=== PATIENT | male | born 1955 | race Caucasian/White ===

== ENCOUNTER → 2016-07-07 | Outpatient (CLI) | payer OTHER ==
[~2016-07-07] MED LIST: CETI10CA PO; ERGO500017 PO; GABA100C8 PO; GABA300C10 PO; HYDR10TA11 PO; HYDROCORTISONE; IBUP200C PO; LISI-167 PO; SERT100T5 PO; SIMV40TA3 PO; TESTOSTERON IM; THYROXINE PO; TRAM50TA2 PO
[2016-07-07 08:31] LABS: ASPARTATE AMINO TRANSFERASE 27 U/L (15-37); BLOOD UREA NITROGEN 16 mg/dL (7-18)
[2016-07-08 08:06] LABS: TESTOSTERONE TOTAL 938 ng/dL (348-1197)
== END | disposition home or self-care (01) ==
LOC: LAB 08:00
PROVIDERS: ATTEND Family Medicine
DX: E78.2 Mixed hyperlipidemia (principal); E03.9 Hypothyroidism, unspecified; E23.0 Hypopituitarism; E27.1 Primary adrenocortical insufficiency; E29.1 Testicular hypofunction
CPT/HCPCS: 36415; 80053; 80061; 81003; 82533; 84146; 84403; 84443; 85025

== ENCOUNTER → 2016-09-21 | Outpatient (CLI) | payer OTHER ==
[~2016-09-21] MED LIST changes: +ACET1TAB64 PO; +ASPI-496 PO; +GABA-826 PO; -GABA100C8 PO; +L-THYROXINE PO; +LORA10TA3 PO; +LOSA50TA6 PO; +METH500T7 PO; +METO25TA35 PO; +OMEP-110 PO; +TEST200V IM
[2016-09-21 16:59] LABS: ASPARTATE AMINO TRANSFERASE 33 U/L (15-37); BLOOD UREA NITROGEN 15 mg/dL (7-18)
== END | disposition home or self-care (01) ==
LOC: STAR 15:30
PROVIDERS: ATTEND Surgery
DX: Z01.818 Encounter for other preprocedural examination (principal); E78.00 Pure hypercholesterolemia, unspecified; I10 Essential (primary) hypertension; E66.9 Obesity, unspecified; G47.30 Sleep apnea, unspecified; K42.9 Umbilical hernia without obstruction or gangrene; Z86.718 Personal history of other venous thrombosis and embolism
CPT/HCPCS: 36415; 71020; 80053; 85025; 93005

== ENCOUNTER 2016-09-25 06:20 | Day surgery (SDC) | payer OTHER ==
[2016-09-21 16:15] VITALS: BP 131/89
[~2016-09-25] VITALS: Ht 182.9 cm; Wt 128.0 kg
[~2016-09-25 06:20] MED LIST changes: +BUPIVACAINE/PF-EPI 0.5% 1:200K ONE
[2016-09-25] MEDS ORDERED: BUPIVACAINE/PF 0.5% ONE ×2 (06:21→07:14)
[2016-09-25] MEDS ORDERED: LIDOCAINE/PF 1%, 30ML ONE ×2 (06:23→07:14)
[2016-09-25] MEDS ORDERED: SODIUM BICARBONATE 4.2%, 5ML ONE ×2 (06:23→07:15)
[2016-09-25] MEDS ORDERED: LACTATED RINGERS 1,000 ML IV SCH ×2 (06:41→07:10)
[2016-09-25 06:50] VITALS: BP 131/89
[2016-09-25] MEDS ORDERED: MIDAZOLAM 1 MG/ML, 2ML ONE (06:58)
[2016-09-25] MEDS ORDERED: KETAMINE 10 MG/ML, 20ML ONE ×2 (06:58→07:24)
[2016-09-25] MEDS ORDERED: FENTANYL PF 250 MCG/5ML ONE (06:58)
[2016-09-25] MEDS ORDERED: LIDOCAINE 1%, 2ML SQ PRN (07:00)
[2016-09-25] MEDS ORDERED: GABAPENTIN 300 MG CAPSULE PO ONE (07:00)
[2016-09-25] MEDS ORDERED: CELE400C PO (07:15)
[2016-09-25] MEDS ORDERED: CEFAZOLIN 1,000 MG ONE (07:24)
[2016-09-25] MEDS ORDERED: ONDANSETRON 2MG/ML, 2ML ONE (07:24)
[2016-09-25] MEDS ORDERED: DEXAMETHASONE 4 MG/ML, 1ML ONE (07:24)
[2016-09-25] MEDS ORDERED: HYDROmorphone 2 MG/ML, 1ML IVPush PRN (07:30)
[2016-09-25] MEDS ORDERED: OXYcodone/APAP 5/325MG TABLET PO PRN (07:30)
[2016-09-25] MEDS ORDERED: ONDANSETRON 2MG/ML, 2ML IVPush PRN ×2 (07:30→08:00)
[2016-09-25] MEDS ORDERED: FENTANYL PF 100 MCG/2ML IV PRN (08:00)
[2016-09-25] MEDS ORDERED: ALBUTEROL/IPRATROPIUM 2.5MG/0.5MG, 3 ML NPPB PRN (08:00)
[2016-09-25] MEDS ORDERED: LABETALOL 5MG/ML, 20ML IV PRN (08:00)
[2016-09-25] MEDS ORDERED: OXYcodone 5 MG/5 ML ORAL.SOL UDC PO PRN (08:00)
[2016-09-25] MEDS ORDERED: hydrALAzine 20 MG/ML, 1ML IV PRN (08:00)
[2016-09-25] MEDS ORDERED: MEPERIDINE/PF 25MG/0.5ML IVPush PRN (08:00)
[2016-09-25] MEDS ORDERED: HYDROmorphone 1 MG/ML, 1ML IV PRN (08:00)
[2016-09-25] MEDS ORDERED: ACETAMINOPHEN 325 MG TABLET PO PRN (08:00)
[2016-09-25] MEDS ORDERED: MIDAZOLAM 1 MG/ML, 2ML IV PRN (08:00)
[2016-09-25] MEDS ORDERED: PROMETHAZINE 25 MG/ML, 1ML IV PRN (08:00)
[2016-09-25] MEDS ORDERED: ACETAMINOPHEN 650 MG/20.3 ML UDC ONE (08:34)
[2016-09-25] MEDS ORDERED: OXYcodone 5 MG/5 ML ORAL.SOL UDC ONE (08:35)
[2016-09-25] MEDS ORDERED: TESTOSTERONE CYPIONATE 200 MG/ML IM SCH (09:00)
[2016-09-25] MEDS ORDERED: METHOCARBAMOL 500 MG TABLET PO SCH (09:00)
[2016-09-25] MEDS ORDERED: ERGOCALCIFEROL 50,000 UNIT CAPSULE PO SCH (09:00)
[2016-09-25] MEDS ORDERED: LEVOTHYROXINE 112 MCG PO SCH (09:00)
[2016-09-25] MEDS ORDERED: OMEPRAZOLE 20 MG CAPSULE.DR PO SCH (09:00)
[2016-09-25] MEDS ORDERED: METOPROLOL TARTRATE 25 MG TABLET PO SCH (09:00)
[2016-09-25] MEDS ORDERED: LORATADINE 10 MG TABLET PO SCH (09:00)
[2016-09-25] MEDS ORDERED: SERTRALINE 100MG TABLET PO SCH (09:00)
[2016-09-25] MEDS ORDERED: HYDROCORTISONE 10 MG TABLET PO SCH (09:00)
[2016-09-25] MEDS ORDERED: LOSARTAN 50MG TABLET PO SCH (09:00)
[2016-09-25] MEDS ORDERED: SIMVASTATIN 40 MG TABLET PO SCH (21:00)
[2016-09-25] MEDS ORDERED: GABAPENTIN 100 MG CAPSULE PO SCH (21:00)
== END 2016-09-25 12:25 ==
LOC: OUT 06:20
PROVIDERS: ATTEND Surgery
DX: K42.9 Umbilical hernia without obstruction or gangrene (principal); E78.00 Pure hypercholesterolemia, unspecified; I10 Essential (primary) hypertension; Z98.890 Other specified postprocedural states; Z88.1 Allergy status to other antibiotic agents; Z88.0 Allergy status to penicillin; Z83.3 Family history of diabetes mellitus; Z80.3 Family history of malignant neoplasm of breast; Z82.49 Family history of ischemic heart disease and other diseases of the circulatory system; G47.30 Sleep apnea, unspecified
CPT/HCPCS: 49585; C1781; J0690; J1100; J2250; J2405; J3010; J3490

== ENCOUNTER → 2017-01-03 | Outpatient (CLI) | payer OTHER ==
[~2017-01-03] MED LIST changes: -BUPIVACAINE/PF-EPI 0.5% 1:200K ONE; +CELE400C PO; -IBUP200C PO; +IBUP200C5 PO; +REGADENOSON 0.4 MG/5 ML SYRINGE ONE
[2017-01-03 09:05] LABS: HEMATOCRIT 44.7 % (39.2-51.8)
[2017-01-03 09:16] LABS: BLOOD UREA NITROGEN 20 mg/dL (7-18)
[2017-01-03 09:17] LABS: ASPARTATE AMINO TRANSFERASE 29 U/L (15-37)
[2017-01-04 08:07] LABS: TESTOSTERONE TOTAL 838 ng/dL (264-916)
== END | disposition home or self-care (01) ==
LOC: CFH 08:01
PROVIDERS: ATTEND Internal Medicine Cardiovascular Disease
DX: Z12.5 Encounter for screening for malignant neoplasm of prostate (principal); R00.2 Palpitations; E27.1 Primary adrenocortical insufficiency; E83.51 Hypocalcemia; I10 Essential (primary) hypertension; E03.9 Hypothyroidism, unspecified; E23.7 Disorder of pituitary gland, unspecified; E78.89 Other lipoprotein metabolism disorders
CPT/HCPCS: 36415; 78452; 80053; 80061; 81003; 82306; 82330; 82533; 84146; 84153; 84403; 84443; 85025; 93017; A9502; J2785

== ENCOUNTER → 2017-08-15 | Outpatient (CLI) | payer OTHER ==
[~2017-08-15] MED LIST changes: -REGADENOSON 0.4 MG/5 ML SYRINGE ONE
[2017-08-15 11:43] LABS: BASOPHILS # (AUTO) 0.03 x10^3/uL (0-0.1); BASOPHILS % (AUTO) 0 % (0-1); EOSINOPHILS # (AUTO) 0.17 x10^3/uL (0-0.4); EOSINOPHILS % (AUTO) 2 % (1-7); LYMPHOCYTES # (AUTO) 1.88 x10^3/uL (1-3.4); LYMPHOCYTES % (AUTO) 20 % (22-44); MD NO; MEAN CORPUSCULAR HEMOGLOBIN 27.6 pg (27.5-34.5); MEAN CORPUSCULAR HGB CONC 32.4 g/dL (33.2-36.2); MEAN CORPUSCULAR VOLUME 85.2 fL (81-97); MEAN PLATELET VOLUME 8.9 fL (7.4-10.4); MONOCYTES # (AUTO) 0.93 x10^3/uL (0.2-0.8); MONOCYTES % (AUTO) 10 % (2-9); NEUTROPHILS # (AUTO) 6.43 x10^3/uL (1.8-6.8); NEUTROPHILS % (AUTO) 68 % (42-75); PLATELET COUNT 226 x10^3/uL (130-400); RED BLOOD COUNT 5.82 x10^6/uL (4.38-5.82); RED CELL DISTRIBUTION WIDTH 16.6 % (9.4-14.8)
[2017-08-15 11:44] LABS: MICROSCOPIC NOT IND
[2017-08-15 11:54] LABS: CHLORIDE 106 mmol/L (98-107)
[2017-08-15 12:10] LABS: ALANINE AMINOTRANSFERASE 40 U/L (12-78); ALBUMIN 3.8 g/dL (3.4-5.0); ALKALINE PHOSPHATASE 74 U/L (45-117); ANION GAP 7 mmol/L (5-15); BILIRUBIN,TOTAL 0.8 mg/dL (0.2-1.0); CALCIUM 8.5 mg/dL (8.5-10.1); CHOL/HDL RATIO 4.3; CHOLESTEROL, TOTAL 171 mg/dL (140-239); CREATININE 1.19 mg/dL (0.7-1.3); HDL CHOL % 23 % (26-37); HDL CHOLESTEROL (DIRECT) 40 mg/dL (40-60); LDL CHOLESTEROL,CALCULATED 94 mg/dL (54-169); LDL/HDL RATIO 2.4 (0.5-3.0); THYROID STIMULATING HORMONE 0.922 mIU/L (0.358-3.740); TRIGLYCERIDES 183 mg/dL (50-200); VLDL CHOLESTEROL 37 mg/dL (0-25)
== END ==
LOC: LAB 11:09
PROVIDERS: ATTEND Family Medicine
DX: E03.9 Hypothyroidism, unspecified (principal); E23.0 Hypopituitarism; E27.1 Primary adrenocortical insufficiency; E29.1 Testicular hypofunction; E55.9 Vitamin D deficiency, unspecified
CPT/HCPCS: 36415; 80053; 80061; 81003; 82306; 82533; 84146; 84153; 84403; 84443; 85025; G0103

== ENCOUNTER → 2017-11-12 | Outpatient (CLI) | payer OTHER ==
[~2017-11-12] MED LIST changes: +IBUP-1623 PO; -IBUP200C5 PO
[2017-11-12 10:13] LABS: HCT (SEDRATE) 48.3 % (39.2-51.8)
[2017-11-12 10:25] LABS: C-REACTIVE PROTEIN, QUANT 0.95 mg/dL (0.02-0.49)
[2017-11-12 10:32] LABS: HEMOGLOBIN A1C 5.9 % (4.2-6.3)
[2017-11-12 10:34] LABS: THYROID STIMULATING HORMONE 0.911 mIU/L (0.358-3.740)
[2017-11-13 17:46] LABS: ANA SCREEN POSITIVE (Negative); ANA TITER 1:40; ANTI-NUCLEAR ANTIBODY PATTERN HOMOGENOUS
== END | disposition home or self-care (01) ==
LOC: LAB 09:51
PROVIDERS: ATTEND Family Medicine
DX: G62.9 Polyneuropathy, unspecified (principal); E55.9 Vitamin D deficiency, unspecified; R73.9 Hyperglycemia, unspecified; R51 Headache
CPT/HCPCS: 36415; 82306; 83036; 84443; 85651; 86038; 86039; 86140

== ENCOUNTER → 2017-12-14 | Outpatient (CLI) | payer OTHER ==
[~2017-12-14] MED LIST changes: -LOSA50TA6 PO; +LOSA50TA7 PO
== END | disposition home or self-care (01) ==
LOC: CFH 07:17
PROVIDERS: ATTEND Family Medicine
DX: M50.30 Other cervical disc degeneration, unspecified cervical region (principal); M48.02 Spinal stenosis, cervical region; M51.36 Other intervertebral disc degeneration, lumbar region; M48.07 Spinal stenosis, lumbosacral region; M47.897 Other spondylosis, lumbosacral region; H70.91 Unspecified mastoiditis, right ear; M54.16 Radiculopathy, lumbar region
CPT/HCPCS: 70551; 72141; 72148

== ENCOUNTER → 2017-12-20 | Outpatient (CLI) | payer OTHER | END | disposition home or self-care (01) | LOC: LAB 13:09 | PROVIDERS: ATTEND Family Medicine | DX: R76.0 Raised antibody titer (principal); Z86.718 Personal history of other venous thrombosis and embolism; Z85.858 Personal history of malignant neoplasm of other endocrine glands | CPT/HCPCS: 36415; 83516; 86038; 86160; 86225; 86235; 86255; 86256; 86376; 86431 ==

== ENCOUNTER 2018-10-29 09:16 | Outpatient (CLI) | payer OTHER | END 2018-10-29 23:59 | disposition home or self-care (01) | LOC: LAB 09:16 | PROVIDERS: ATTEND Internal Medicine Cardiovascular Disease | DX: E03.9 Hypothyroidism, unspecified (principal); E27.1 Primary adrenocortical insufficiency; E55.9 Vitamin D deficiency, unspecified; E78.2 Mixed hyperlipidemia; R53.83 Other fatigue; R97.20 Elevated prostate specific antigen [PSA] | CPT/HCPCS: 36415; 80053; 80061; 81003; 82306; 82533; 84146; 84153; 84403; 84436; 84443; 84481; 85025 ==

== ENCOUNTER → 2019-02-14 | Outpatient (CLI) | payer OTHER ==
[~2019-02-14] MED LIST changes: +HYDR-3059 PO; -HYDR10TA11 PO; +LORA-247 PO; -LORA10TA3 PO; +LOSA50TA14 PO; -LOSA50TA7 PO; +SERT100T32 PO; -SERT100T5 PO
[2019-02-14 08:54] LABS: CHOL/HDL RATIO 5.2; LDL/HDL RATIO 3.1 (0.5-3.0)
== END | disposition home or self-care (01) ==
LOC: LAB 08:02
PROVIDERS: ATTEND Internal Medicine Cardiovascular Disease
DX: D75.1 Secondary polycythemia (principal); E03.9 Hypothyroidism, unspecified; E78.2 Mixed hyperlipidemia; G47.30 Sleep apnea, unspecified; G62.9 Polyneuropathy, unspecified; I10 Essential (primary) hypertension; M25.571 Pain in right ankle and joints of right foot; R00.2 Palpitations; R60.9 Edema, unspecified
CPT/HCPCS: 36415; 80061

== ENCOUNTER → 2019-04-23 | Outpatient (CLI) | payer OTHER ==
[~2019-04-23] MED LIST changes: +SIMV40TA20 PO; -SIMV40TA3 PO
[2019-04-23 10:33] LABS: BASOPHILS # (AUTO) 0.06 x10^3/uL (0-0.1); BASOPHILS % (AUTO) 1 % (0-1); EOSINOPHILS # (AUTO) 0.12 x10^3/uL (0-0.4); EOSINOPHILS % (AUTO) 2 % (1-7); LYMPHOCYTES # (AUTO) 2.19 x10^3/uL (1-3.4); LYMPHOCYTES % (AUTO) 27 % (22-44); MD NO; MEAN CORPUSCULAR HEMOGLOBIN 30.2 pg (27.5-34.5); MEAN CORPUSCULAR HGB CONC 32.4 g/dL (33.2-36.2); MEAN CORPUSCULAR VOLUME 93.1 fL (81-97); MEAN PLATELET VOLUME 8.3 fL (7.4-10.4); MONOCYTES # (AUTO) 0.73 x10^3/uL (0.2-0.8); MONOCYTES % (AUTO) 9 % (2-9); NEUTROPHILS # (AUTO) 5.01 x10^3/uL (1.8-6.8); NEUTROPHILS % (AUTO) 62 % (42-75); PLATELET COUNT 248 x10^3/uL (130-400); RED BLOOD COUNT 5.52 x10^6/uL (4.38-5.82); RED CELL DISTRIBUTION WIDTH 15.7 % (9.4-14.8)
[2019-04-23 10:37] LABS: HCT (SEDRATE) 51.4 % (39.2-51.8)
[2019-04-23 11:09] LABS: ALANINE AMINOTRANSFERASE 40 U/L (12-78); ALBUMIN 3.8 g/dL (3.4-5.0); ANION GAP 7 mmol/L (5-15); C-REACTIVE PROTEIN, QUANT 0.57 mg/dL (0.02-0.49); CALCIUM 8.8 mg/dL (8.5-10.1); CHLORIDE 109 mmol/L (98-107); CREATININE 1.58 mg/dL (0.7-1.3)
[2019-04-23 11:12] LABS: ALKALINE PHOSPHATASE 63 U/L (45-117); BILIRUBIN,TOTAL 0.4 mg/dL (0.2-1.0); TOTAL PROTEIN 7.5 g/dL (6.4-8.2)
[2019-04-23 11:20] LABS: CHOL/HDL RATIO 4.7; LDL/HDL RATIO 2.8 (0.5-3.0)
== END | disposition home or self-care (01) ==
LOC: LAB 10:11
PROVIDERS: ATTEND Nurse Practitioner
DX: I10 Essential (primary) hypertension (principal); E03.9 Hypothyroidism, unspecified; E78.2 Mixed hyperlipidemia; E23.0 Hypopituitarism; E55.9 Vitamin D deficiency, unspecified; D64.9 Anemia, unspecified; E27.1 Primary adrenocortical insufficiency; D75.1 Secondary polycythemia; G47.30 Sleep apnea, unspecified; G62.9 Polyneuropathy, unspecified; M25.571 Pain in right ankle and joints of right foot; R00.2 Palpitations; R60.9 Edema, unspecified; R10.9 Unspecified abdominal pain; K92.1 Melena
CPT/HCPCS: 36415; 80053; 80061; 82306; 84146; 84443; 85025; 85651; 86140

== ENCOUNTER 2020-01-06 17:25 | Emergency (ER) | payer OTHER ==
[~2020-01-06] VITALS: Ht 182.9 cm; Wt 125.0 kg
[~2020-01-06 17:25] MED LIST changes: -HYDR-3059 PO; +HYDR-3590 PO
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
[2020-01-06] MEDS ORDERED: DIPH,PERTUSS(ACELL),TET VAC/PF 0.5 ML IM-VACC ONE ×3 (17:43→18:00)
[2020-01-06] MEDS ORDERED: L.E.T SOLUTION TP ONE ×2 (18:00→18:56)
[2020-01-06] MEDS ORDERED: LIDOCAINE-MPF 1%, 5ML INFIL ONE (18:00)
--- NOTE | 2020-01-06 18:09 | NUR ---
PT TO CT.
--- NOTE | 2020-01-06 18:50 | NUR ---
PT HAS C/O RT LOW BACK PAIN. PER BUZZ BULLARD, NO IMAGING INDICATED AT THIS TIME.
[2020-01-06] MEDS ORDERED: LIDOCAINE-MPF 1%, 5ML ONE (18:55)
--- NOTE | 2020-01-06 18:55 | NUR ---
REPORT GIVEN TO ANTHONY BORJA. PT RESTING ON GURNEY W/ CALL LIGHT IN REACH AND FAMILY AT BEDSIDE, RESP EVEN AND UNLABORED, NADN. AWAITING SUTURES.
[2020-01-06] MEDS ORDERED: KETOROLAC 30 MG/1 ML ONE (19:38)
[2020-01-06] MEDS ORDERED: NEOSPORIN OINT. PKT 1 PACKET ONE (19:48)
[2020-01-06] MEDS ORDERED: KETOROLAC 30 MG/1 ML IM ONE (20:00)
[2020-01-06 20:27] VITALS: BP 148/89
== END 2020-01-06 20:52 | disposition home or self-care (01) ==
LOC: ED 20:18
DX: S01.21XA Laceration without foreign body of nose, initial encounter (principal); S39.012A Strain of muscle, fascia and tendon of lower back, initial encounter; S63.511A Sprain of carpal joint of right wrist, initial encounter; S60.222A Contusion of left hand, initial encounter; S60.413A Abrasion of left middle finger, initial encounter; I10 Essential (primary) hypertension; E78.5 Hyperlipidemia, unspecified; W01.198A Fall on same level from slipping, tripping and stumbling with subsequent striking against other object, initial encounter; Y93.89 Activity, other specified; Y92.009 Unspecified place in unspecified non-institutional (private) residence as the place of occurrence of the external cause; Y99.8 Other external cause status
CPT/HCPCS: 12011; 70450; 70486; 72125; 73110; 73130; 90471; 90715; 96372; 99285; J1885

== ENCOUNTER → 2020-02-09 | Outpatient (CLI) | payer OTHER ==
[2020-02-09 08:24] LABS: ALBUMIN 3.6 g/dL (3.4-5.0); ANION GAP 6 mmol/L (5-15); CALCIUM 8.9 mg/dL (8.5-10.1); CHLORIDE 106 mmol/L (98-107)
[2020-02-09 08:25] LABS: BASOPHILS % (AUTO) 1 % (0-1); EOSINOPHILS % (AUTO) 2 % (1-7); LYMPHOCYTES % (AUTO) 26 % (22-44); MEAN CORPUSCULAR HEMOGLOBIN 30.2 pg (27.5-34.5); MEAN CORPUSCULAR HGB CONC 33.9 g/dL (33.2-36.2); MEAN PLATELET VOLUME 8.2 fL (7.4-10.4); MONOCYTES % (AUTO) 10 % (2-9); NEUTROPHILS % (AUTO) 61 % (42-75); PLATELET COUNT 259 x10^3/uL (130-400); RED BLOOD COUNT 5.33 x10^6/uL (4.38-5.82); RED CELL DISTRIBUTION WIDTH 15.5 % (9.4-14.8)
[2020-02-09 08:29] LABS: MD NO
[2020-02-09 08:33] LABS: ALANINE AMINOTRANSFERASE 34 U/L (12-78); ALKALINE PHOSPHATASE 92 U/L (45-117); BILIRUBIN,TOTAL 0.4 mg/dL (0.2-1.0); CHOL/HDL RATIO 4.1; CHOLESTEROL, TOTAL 191 mg/dL (140-239); CREATININE 1.04 mg/dL (0.7-1.3); FREE T4 (FREE THYROXINE) 0.78 ng/dL (0.76-1.46); HDL CHOL % 25 % (26-37); HDL CHOLESTEROL (DIRECT) 47 mg/dL (40-60); LDL CHOLESTEROL,CALCULATED 93 mg/dL (54-169); TOTAL PROTEIN 7.3 g/dL (6.4-8.2); TRIGLYCERIDES 254 mg/dL (50-200); VLDL CHOLESTEROL 51 mg/dL (0-25)
== END | disposition home or self-care (01) ==
LOC: LAB 07:55
PROVIDERS: ATTEND Nurse Practitioner
DX: I10 Essential (primary) hypertension (principal); E78.2 Mixed hyperlipidemia; E03.9 Hypothyroidism, unspecified; E23.0 Hypopituitarism
CPT/HCPCS: 36415; 80053; 80061; 84146; 84439; 84443; 85025

== ENCOUNTER 2020-03-28 11:51 | Inpatient (IN) | payer OTHER ==
[~2020-03-28] VITALS: Ht 182.9 cm; Wt 94.2 kg
[~2020-03-28 11:51] MED LIST changes: +METH-639 PO; -METH500T7 PO
--- NOTE | 2020-03-28 12:20 | NUR ---
INITIAL PT CONTACT. PT PRESENTS TO THE ED C/O WORSENING SOB AND CHEST PAIN. "COVID POSITIVE FOUND OUT 03/26/2020. WORSENING SYMPTOMS SINCE THEN". INITIAL SX STARTED 03/21/2020. NO HOME O2. RA O2 SAT 80%, PT PLACED ON OXY MASK ON 8L BY [employer] SYSTEM FREIGHT [employer]ER. PT SITTING UPRIGHT ON GURNEY, NAD. PT DENIES ANY NEEDS AT THIS TIME. CALL LIGHT AND PERSONAL BELONGINGS WITHIN REACH.
[2020-03-28] MEDS ORDERED: DEXAMETHASONE 4 MG/ML, 1ML IV ONE (12:30)
[2020-03-28] MEDS ORDERED: DEXAMETHASONE 4 MG/ML, 1ML ONE (12:32)
[2020-03-28] MEDS ORDERED: CEFTRIAXONE PMX 1GM/50ML 50 ML IVPB ONE (13:00)
[2020-03-28] MEDS ORDERED: AZITHROMYCIN 500 MG in SODIUM CHLORIDE 0.9% 250 ML IV ONE (13:00)
[2020-03-28] MEDS ORDERED: CEFTRIAXONE PMX 1GM/50ML 50 ML ONE (13:01)
--- NOTE | 2020-03-28 13:10 | NUR ---
PT SITTING UPRIGHT ON GURNEY. NAD, VSS. PT PROVIDED WARM BLANKET. PT DENIES ANY NEEDS AT THIS TIME. CALL LIGHT AND BELONGINGS WITHIN REACH.
[2020-03-28] MEDS ORDERED: KETOROLAC 30 MG/1 ML IV PRN (13:30)
[2020-03-28] MEDS ORDERED: ONDANSETRON 2MG/ML, 2ML IVPush PRN (13:30)
[2020-03-28] MEDS ORDERED: ENOXAPARIN 40 MG/0.4 ML SQ SCH (13:30)
[2020-03-28] MEDS ORDERED: ONDANSETRON ODT 4 MG PO PRN (13:30)
[2020-03-28] MEDS ORDERED: TRAZODONE 50MG TABLET PO PRN (13:30)
[2020-03-28] MEDS ORDERED: GUAIFENESIN/DM 200-20MG, 10ML UDC PO PRN (13:30)
[2020-03-28] MEDS ORDERED: MELATONIN 5 MG TABLET PO PRN (13:30)
[2020-03-28] MEDS ORDERED: ENALAPRILAT 1.25 MG/ML, 2ML IVPush PRN (13:30)
[2020-03-28 13:34] LABS: BASOPHILS % (AUTO) 1 % (0-1); EOSINOPHILS % (AUTO) 0 % (1-7); LYMPHOCYTES % (AUTO) 14 % (22-44); MEAN CORPUSCULAR HEMOGLOBIN 30.3 pg (27.5-34.5); MEAN PLATELET VOLUME 8.9 fL (7.4-10.4); MONOCYTES % (AUTO) 7 % (2-9); NEUTROPHILS % (AUTO) 78 % (42-75); PLATELET COUNT 131 x10^3/uL (130-400); RED BLOOD COUNT 5.11 x10^6/uL (4.38-5.82); RED CELL DISTRIBUTION WIDTH 17.5 % (9.4-14.8)
[2020-03-28] MEDS ORDERED: ENOXAPARIN 40 MG/0.4 ML ONE (13:35)
[2020-03-28 13:37] LABS: MD NO
[2020-03-28 13:39] LABS: ALANINE AMINOTRANSFERASE 34 U/L (12-78); ALBUMIN 3.2 g/dL (3.4-5.0); ANION GAP 5 mmol/L (5-15); CALCIUM 7.8 mg/dL (8.5-10.1); CHLORIDE 101 mmol/L (98-107); CREATININE 1.06 mg/dL (0.7-1.3)
[2020-03-28 13:41] LABS: ALKALINE PHOSPHATASE 65 U/L (45-117); BILIRUBIN,TOTAL 0.6 mg/dL (0.2-1.0); TOTAL PROTEIN 7.3 g/dL (6.4-8.2)
--- NOTE | 2020-03-28 13:59 | NUR ---
PT SITTING UPRIGHT ON GURNEY. NAD, VSS. PT PROVIDED WARM BLANKET AND BEAR PAW WARMER PER REQUEST. PT DENIES ANY NEEDS AT THIS TIME. CALL LIGHT AND BELONGINGS WITHIN REACH.
--- NOTE | 2020-03-28 14:11 | NUR ---
HOSPITALIST AT BEDSIDE
[2020-03-28] MEDS ORDERED: THIAMINE 100MG TABLET ONE (14:28)
[2020-03-28] MEDS ORDERED: THIAMINE 100MG TABLET PO ONE (14:30)
--- NOTE | 2020-03-28 14:35 | NUR ---
PT PROVIDED URINAL PER REQUEST. PT DENIES ANY ADDITIONAL NEEDS AT THIS TIME.
[2020-03-28] MEDS ORDERED: REMDESIVIR 200 MG in SODIUM CHLORIDE 0.9% 250 ML IVPB ONE (15:00)
--- NOTE | 2020-03-28 15:02 | NUR ---
BEDSIDE REPORT TO TERRY BORJA
--- NOTE | 2020-03-28 15:08 | NUR ---
Report from HUONG Shafer. Assumed care.
--- NOTE | 2020-03-28 15:33 | NUR ---
Rin retrieved from pharmacy. RN at bedside. Pt reports they are coughing more than usual and coughing up phlem
--- NOTE | 2020-03-28 15:46 | NUR ---
Remdesivier infusing. RN at bedside. Pt up to 10L oxymask, satting 90%. This RN called RT to inquire about pt.'s condition- RT reported anything above 85% is good, and that the pt. satting at 90% is ok.
--- NOTE | 2020-03-28 15:55 | NUR ---
Pt flushed- face and chest red. Diaphoretic. Coughing periodically- productive. RN at bedside. Remdesivir infusing.
--- NOTE | 2020-03-28 15:56 | NUR ---
Provided pt 7UP, water and crackers per pt. request. Order is in for regular diet.
[2020-03-28] MEDS ORDERED: ASCORBIC ACID 500 MG TABLET ONE (17:41)
[2020-03-28] MEDS: ASCORBIC ACID 500 MG TABLET PO SCH (17:44)
--- NOTE | 2020-03-28 17:57 | NUR ---
Pt's 02 sats dropped 70% when pt stood to use urinal. RN at bedside. Took about 2 minutes for pt.'s 02 sats to get back to 90% on 10L oxymask.
--- NOTE | 2020-03-28 18:42 | NUR ---
Ordered dinner tray for pt.
--- NOTE | 2020-03-28 19:02 | NUR ---
Dinner tray delivered to pt. Pt sitting up in bed eating. RN at bedside.
--- NOTE | 2020-03-28 19:20 | NUR ---
RN at bedside, provider at bedside.
--- NOTE | 2020-03-28 19:21 | NUR ---
Pt being transported upstairs, monitored.
[2020-03-28 19:37] VITALS: BP 123/85
[2020-03-28 20:10] VITALS: BP 119/86
[2020-03-28] MEDS: METOPROLOL TARTRATE 25 MG TAB PO SCH (20:12)
[2020-03-28] MEDS: GABAPENTIN 300 MG CAPSULE PO SCH (20:12)
[2020-03-28] MEDS: HYDROCORTISONE 20 MG TABLET PO SCH (20:12)
[2020-03-28] MEDS: FAMOTIDINE 20 MG TABLET PO SCH (20:13)
[2020-03-28] MEDS: SIMVASTATIN 40 MG TABLET PO SCH (22:14)
[2020-03-28] MEDS: GUAIFENESIN/COD200MG-20MG/10ML LIQUID PO PRN (22:14)
[2020-03-28] MEDS: ACETAMINOPHEN 325 MG TABLET PO PRN (23:35)
[2020-03-29] MEDS: GUAIFENESIN/COD200MG-20MG/10ML LIQUID PO PRN (03:12)
[2020-03-29 03:14] VITALS: BP 129/69
[2020-03-29 05:46] LABS: BASOPHILS % (AUTO) 0 % (0-1); EOSINOPHILS % (AUTO) 0 % (1-7); LYMPHOCYTES % (AUTO) 15 % (22-44); MEAN CORPUSCULAR HGB CONC 33.8 g/dL (33.2-36.2); MEAN PLATELET VOLUME 8.6 fL (7.4-10.4); MONOCYTES % (AUTO) 7 % (2-9); NEUTROPHILS % (AUTO) 78 % (42-75); PLATELET COUNT 152 x10^3/uL (130-400); RED BLOOD COUNT 5.48 x10^6/uL (4.38-5.82)
[2020-03-29] MEDS ORDERED: FUROSEMIDE 20 MG/2 ML IV STA (05:49)
[2020-03-29 05:54] LABS: CHLORIDE 102 mmol/L (98-107)
[2020-03-29 06:11] LABS: ALANINE AMINOTRANSFERASE 34 U/L (12-78); ALBUMIN 3.1 g/dL (3.4-5.0); ALKALINE PHOSPHATASE 70 U/L (45-117); ANION GAP 7 mmol/L (5-15); BILIRUBIN,TOTAL 0.6 mg/dL (0.2-1.0); CALCIUM 8.1 mg/dL (8.5-10.1); TOTAL PROTEIN 7.7 g/dL (6.4-8.2)
[2020-03-29 06:13] LABS: MD NO
[2020-03-29 06:21] LABS: C-REACTIVE PROTEIN, QUANT > 19.00 mg/dL (0.02-0.49)
[2020-03-29 07:03] LABS: FIO2 100 %
[2020-03-29] MEDS: METHOCARBAMOL 500 MG TABLET PO SCH (08:10)
[2020-03-29] MEDS: ZINC SULFATE 220 MG CAPSULE PO SCH (08:10)
[2020-03-29] MEDS: METOPROLOL TARTRATE 25 MG TAB PO SCH ×2 (08:10→20:35)
[2020-03-29] MEDS: LORATADINE 10 MG TABLET PO SCH (08:10)
[2020-03-29] MEDS: FAMOTIDINE 20 MG TABLET PO SCH ×2 (08:10→20:35)
[2020-03-29] MEDS: ASCORBIC ACID 500 MG TABLET PO SCH ×2 (08:10→16:48)
[2020-03-29] MEDS ORDERED: LOSARTAN 50MG TABLET PO SCH (09:00)
[2020-03-29] MEDS ORDERED: CHOLECALCIFEROL 1,000 UNIT TABLET PO SCH (09:00)
[2020-03-29] MEDS ORDERED: DEXAMETHASONE 4 MG/ML, 1ML IVPush SCH (09:00)
[2020-03-29] MEDS: HYDROCORTISONE 20 MG TABLET PO SCH ×2 (09:10→20:34)
[2020-03-29] MEDS: ENOXAPARIN 120MG/0.8ML SQ SCH ×2 (09:10→20:35)
[2020-03-29] MEDS: SERTRALINE 100MG TABLET PO SCH (09:10)
[2020-03-29] MEDS: GUAIFENESIN/COD200MG-20MG/10ML LIQUID PO SCH ×3 (11:24→20:34)
[2020-03-29] MEDS: CEFTRIAXONE PMX 1GM/50ML 50 ML IV SCH (14:26)
[2020-03-29] MEDS: REMDESIVIR 100 MG in SODIUM CHLORIDE 0.9% 250 ML IVPB SCH (15:53)
[2020-03-29 18:47] VITALS: BP 109/72
[2020-03-29 19:08] VITALS: BP 117/77
[2020-03-29 20:30] VITALS: BP 99/56
[2020-03-29] MEDS: GABAPENTIN 300 MG CAPSULE PO SCH ×2 (20:35→21:00)
[2020-03-29] MEDS: SIMVASTATIN 40 MG TABLET PO SCH (20:35)
[2020-03-30] MEDS: GUAIFENESIN/COD200MG-20MG/10ML LIQUID PO SCH ×6 (04:26→19:48)
[2020-03-30 05:06] LABS: BASOPHILS % (AUTO) 1 % (0-1); EOSINOPHILS % (AUTO) 0 % (1-7); LYMPHOCYTES % (AUTO) 15 % (22-44); MEAN CORPUSCULAR HEMOGLOBIN 30.1 pg (27.5-34.5); MEAN CORPUSCULAR HGB CONC 32.8 g/dL (33.2-36.2); MEAN PLATELET VOLUME 9.2 fL (7.4-10.4); MONOCYTES % (AUTO) 7 % (2-9); NEUTROPHILS % (AUTO) 77 % (42-75); PLATELET COUNT 138 x10^3/uL (130-400); RED CELL DISTRIBUTION WIDTH 16.9 % (9.4-14.8)
[2020-03-30 05:10] LABS: MD NO
[2020-03-30 05:11] LABS: ALBUMIN 2.8 g/dL (3.4-5.0); CHLORIDE 103 mmol/L (98-107)
[2020-03-30 05:23] LABS: ALANINE AMINOTRANSFERASE 31 U/L (12-78); ALKALINE PHOSPHATASE 61 U/L (45-117); ANION GAP 3 mmol/L (5-15); BILIRUBIN,TOTAL 0.5 mg/dL (0.2-1.0); TOTAL PROTEIN 6.9 g/dL (6.4-8.2)
[2020-03-30 06:00] VITALS: BP 134/86
[2020-03-30] MEDS ORDERED: FUROSEMIDE 40 MG/4 ML ONE (08:47)
[2020-03-30] MEDS: LORATADINE 10 MG TABLET PO SCH (08:52)
[2020-03-30] MEDS: METHOCARBAMOL 500 MG TABLET PO SCH (08:52)
[2020-03-30] MEDS: THIAMINE 100MG TABLET PO SCH (08:52)
[2020-03-30] MEDS: ASCORBIC ACID 500 MG TABLET PO SCH ×2 (08:52→16:39)
[2020-03-30] MEDS: ZINC SULFATE 220 MG CAPSULE PO SCH (08:52)
[2020-03-30] MEDS: CHOLECALCIFEROL 5,000u TAB PO SCH (08:52)
[2020-03-30] MEDS: ENOXAPARIN 120MG/0.8ML SQ SCH ×2 (08:53→21:02)
[2020-03-30] MEDS: SERTRALINE 100MG TABLET PO SCH (08:53)
[2020-03-30] MEDS: HYDROCORTISONE 100 MG INJ. IVPush SCH ×2 (08:53→16:38)
[2020-03-30] MEDS ORDERED: FUROSEMIDE 40 MG/4 ML IV ONE (09:00)
[2020-03-30 12:10] LABS: MICROSCOPIC NOT IND
[2020-03-30] MEDS ORDERED: AZITHROMYCIN 500 MG TABLET PO ONE (13:30)
[2020-03-30] MEDS: CEFTRIAXONE PMX 1GM/50ML 50 ML IV SCH (16:39)
[2020-03-30] MEDS: ACETAMINOPHEN 325 MG TABLET PO PRN (17:01)
[2020-03-30] MEDS: REMDESIVIR 100 MG in SODIUM CHLORIDE 0.9% 250 ML IVPB SCH (17:54)
[2020-03-30] MEDS: SIMVASTATIN 40 MG TABLET PO SCH (19:48)
[2020-03-31] MEDS: HYDROCORTISONE 100 MG INJ. IVPush SCH ×3 (00:27→16:31)
[2020-03-31] MEDS: GUAIFENESIN/COD200MG-20MG/10ML LIQUID PO SCH ×6 (00:27→20:39)
[2020-03-31] MEDS: ACETAMINOPHEN 325 MG TABLET PO PRN (00:33)
[2020-03-31 04:00] VITALS: BP 103/62
[2020-03-31 04:44] LABS: ALANINE AMINOTRANSFERASE 30 U/L (12-78); ALBUMIN 2.6 g/dL (3.4-5.0); ANION GAP 6 mmol/L (5-15); CALCIUM 7.8 mg/dL (8.5-10.1); CHLORIDE 105 mmol/L (98-107); CREATININE 0.93 mg/dL (0.7-1.3)
[2020-03-31 04:46] LABS: ALKALINE PHOSPHATASE 67 U/L (45-117); BILIRUBIN,TOTAL 0.5 mg/dL (0.2-1.0); TOTAL PROTEIN 6.6 g/dL (6.4-8.2)
[2020-03-31] MEDS: ENOXAPARIN 120MG/0.8ML SQ SCH ×2 (09:00→20:39)
[2020-03-31] MEDS ORDERED: FUROSEMIDE 40 MG/4 ML IV ONE (09:00)
[2020-03-31] MEDS: THIAMINE 100MG TABLET PO SCH (09:12)
[2020-03-31] MEDS: ASCORBIC ACID 500 MG TABLET PO SCH ×2 (09:12→16:31)
[2020-03-31] MEDS: ZINC SULFATE 220 MG CAPSULE PO SCH (09:12)
[2020-03-31] MEDS: METHOCARBAMOL 500 MG TABLET PO SCH (09:12)
[2020-03-31] MEDS: CHOLECALCIFEROL 5,000u TAB PO SCH (09:12)
[2020-03-31] MEDS: AZITHROMYCIN 500 MG TABLET PO SCH (09:12)
[2020-03-31] MEDS: LORATADINE 10 MG TABLET PO SCH (09:12)
[2020-03-31] MEDS: SERTRALINE 100MG TABLET PO SCH (09:12)
[2020-03-31] MEDS: CEFTRIAXONE PMX 1GM/50ML 50 ML IV SCH (14:20)
[2020-03-31] MEDS: REMDESIVIR 100 MG in SODIUM CHLORIDE 0.9% 250 ML IVPB SCH (15:32)
[2020-03-31] MEDS: SIMVASTATIN 40 MG TABLET PO SCH (20:39)
[2020-04-01] MEDS: HYDROCORTISONE 100 MG INJ. IVPush SCH ×3 (00:26→16:12)
[2020-04-01 03:22] LABS: MEAN CORPUSCULAR HEMOGLOBIN 30.3 pg (27.5-34.5); MEAN CORPUSCULAR HGB CONC 33.7 g/dL (33.2-36.2); MEAN PLATELET VOLUME 8.8 fL (7.4-10.4); PLATELET COUNT 208 x10^3/uL (130-400); RED BLOOD COUNT 4.91 x10^6/uL (4.38-5.82); RED CELL DISTRIBUTION WIDTH 16.9 % (9.4-14.8)
[2020-04-01 03:35] LABS: ALANINE AMINOTRANSFERASE 30 U/L (12-78); ALBUMIN 2.6 g/dL (3.4-5.0); ANION GAP 6 mmol/L (5-15); CALCIUM 8.1 mg/dL (8.5-10.1); CHLORIDE 102 mmol/L (98-107)
[2020-04-01 03:37] LABS: ALKALINE PHOSPHATASE 71 U/L (45-117); BILIRUBIN,TOTAL 0.6 mg/dL (0.2-1.0); TOTAL PROTEIN 6.8 g/dL (6.4-8.2)
[2020-04-01] MEDS: GUAIFENESIN/COD200MG-20MG/10ML LIQUID PO SCH ×6 (04:03→22:00)
[2020-04-01 04:06] LABS: MD YES
[2020-04-01 04:10] LABS: ANISOCYTOSIS 1+; BAND#(MANUAL) 0.28 x10^3/uL; BANDS%(MANUAL) 2 % (0-7); LYMPH#(MANUAL) 0.57 x10^3/uL (1-3.4); LYMPHS% (MANUAL) 4 % (22-44); MONOS#(MANUAL) 1.14 x10^3/uL (0.3-2.7); MONOS% (MANUAL) 8 % (2-9); REACTIVE LYMPHS # (MANUAL) 0.14 x10^3/uL (0-0); REACTIVE LYMPHS % (MANUAL) 1 % (0-0); SEG#(MANUAL) 12.07 x10^3/uL (1.8-6.8); SEGS% (MANUAL) 85 % (42-75)
[2020-04-01 04:11] LABS: POLYCHROMASIA 1+
[2020-04-01 04:13] LABS: <PLATELET ESTIMATE> ADEQUATE; <PLT MORPHOLOGY> NORMAL PLT MORPH
[2020-04-01 06:00] VITALS: BP 135/85
[2020-04-01] MEDS: SERTRALINE 100MG TABLET PO SCH (08:57)
[2020-04-01] MEDS: ZINC SULFATE 220 MG CAPSULE PO SCH (08:57)
[2020-04-01] MEDS: THIAMINE 100MG TABLET PO SCH (08:57)
[2020-04-01] MEDS: LORATADINE 10 MG TABLET PO SCH (08:57)
[2020-04-01] MEDS: CHOLECALCIFEROL 5,000u TAB PO SCH (08:58)
[2020-04-01] MEDS: METHOCARBAMOL 500 MG TABLET PO SCH (08:58)
[2020-04-01] MEDS: AZITHROMYCIN 500 MG TABLET PO SCH (08:58)
[2020-04-01] MEDS: FUROSEMIDE 40 MG/4 ML IV SCH ×2 (08:58→16:12)
[2020-04-01] MEDS: ASCORBIC ACID 500 MG TABLET PO SCH ×2 (08:58→16:12)
[2020-04-01] MEDS: ENOXAPARIN 120MG/0.8ML SQ SCH ×2 (09:00→21:00)
[2020-04-01] MEDS: REMDESIVIR 100 MG in SODIUM CHLORIDE 0.9% 250 ML IVPB SCH (14:16)
[2020-04-01] MEDS: CEFTRIAXONE PMX 1GM/50ML 50 ML IV SCH (18:00)
[2020-04-01] MEDS ORDERED: SENNA/DOCUSATE TABLET ONE (21:30)
[2020-04-01] MEDS: SENNA/DOCUSATE TABLET PO SCH (21:59)
[2020-04-01] MEDS: SIMVASTATIN 40 MG TABLET PO SCH (22:00)
[2020-04-01] MEDS: LIDODERM 5% PATCH TD SCH (22:01)
[2020-04-02] MEDS: HYDROCORTISONE 100 MG INJ. IVPush SCH ×3 (00:40→20:37)
[2020-04-02] MEDS: GUAIFENESIN/COD200MG-20MG/10ML LIQUID PO SCH ×6 (04:46→20:37)
[2020-04-02 05:23] VITALS: BP 126/75
[2020-04-02 07:48] LABS: MEAN CORPUSCULAR HEMOGLOBIN 30.3 pg (27.5-34.5); MEAN CORPUSCULAR HGB CONC 33.4 g/dL (33.2-36.2); MEAN PLATELET VOLUME 8.6 fL (7.4-10.4); PLATELET COUNT 262 x10^3/uL (130-400); RED BLOOD COUNT 4.73 x10^6/uL (4.38-5.82); RED CELL DISTRIBUTION WIDTH 16.7 % (9.4-14.8)
[2020-04-02 07:58] LABS: ALANINE AMINOTRANSFERASE 30 U/L (12-78); ALBUMIN 2.3 g/dL (3.4-5.0); ANION GAP 8 mmol/L (5-15); CALCIUM 8.3 mg/dL (8.5-10.1); CHLORIDE 102 mmol/L (98-107); CREATININE 0.91 mg/dL (0.7-1.3)
[2020-04-02 08:02] LABS: ALKALINE PHOSPHATASE 65 U/L (45-117); BILIRUBIN,TOTAL 0.7 mg/dL (0.2-1.0); TOTAL PROTEIN 6.5 g/dL (6.4-8.2)
[2020-04-02] MEDS: FUROSEMIDE 40 MG/4 ML IV SCH ×2 (08:35→17:09)
[2020-04-02] MEDS: AZITHROMYCIN 500 MG TABLET PO SCH (08:36)
[2020-04-02] MEDS: ASCORBIC ACID 500 MG TABLET PO SCH ×2 (08:36→17:09)
[2020-04-02] MEDS: LORATADINE 10 MG TABLET PO SCH (08:36)
[2020-04-02] MEDS: THIAMINE 100MG TABLET PO SCH (08:36)
[2020-04-02] MEDS: ZINC SULFATE 220 MG CAPSULE PO SCH (08:36)
[2020-04-02] MEDS: CHOLECALCIFEROL 5,000u TAB PO SCH (08:36)
[2020-04-02] MEDS: SERTRALINE 100MG TABLET PO SCH (08:36)
[2020-04-02] MEDS: METHOCARBAMOL 500 MG TABLET PO SCH (08:36)
[2020-04-02] MEDS: LIDODERM REMOVE PATCH NOTE XX SCH (08:48)
[2020-04-02] MEDS: ENOXAPARIN 120MG/0.8ML SQ SCH ×2 (09:00→20:42)
[2020-04-02 09:24] LABS: MD YES
[2020-04-02 09:27] LABS: BAND#(MANUAL) 0.95 x10^3/uL; BANDS%(MANUAL) 6 % (0-7); LYMPH#(MANUAL) 1.42 x10^3/uL (1-3.4); LYMPHS% (MANUAL) 9 % (22-44); MONOS#(MANUAL) 0.79 x10^3/uL (0.3-2.7); MONOS% (MANUAL) 5 % (2-9); REACTIVE LYMPHS # (MANUAL) 0.16 x10^3/uL (0-0); REACTIVE LYMPHS % (MANUAL) 1 % (0-0); SEG#(MANUAL) 12.48 x10^3/uL (1.8-6.8); SEGS% (MANUAL) 79 % (42-75)
[2020-04-02 09:28] LABS: <PLATELET ESTIMATE> ADEQUATE; <PLT MORPHOLOGY> NORMAL PLT MORPH
[2020-04-02 09:29] LABS: ANISOCYTOSIS 1+
[2020-04-02] MEDS: SENNA/DOCUSATE TABLET PO SCH ×2 (12:00→20:37)
[2020-04-02] MEDS: POLYETHYLENE GLYCOL 17 GM PACKET PO PRN (12:01)
[2020-04-02] MEDS ORDERED: TESTOSTERONE CYPIONATE 200 MG/ML IM ONE (12:30)
[2020-04-02] MEDS ORDERED: ALBUTEROL/IPRATROPIUM 2.5MG/0.5MG, 3 ML ONE (16:26)
[2020-04-02] MEDS: CEFTRIAXONE PMX 1GM/50ML 50 ML IV SCH (18:13)
[2020-04-02] MEDS: MAGNESIUM HYDROXIDE 8%, 30ML UDC PO PRN (18:24)
[2020-04-02] MEDS: LIDODERM 5% PATCH TD SCH (20:32)
[2020-04-02] MEDS: SIMVASTATIN 40 MG TABLET PO SCH (20:37)
[2020-04-03] MEDS: GUAIFENESIN/COD200MG-20MG/10ML LIQUID PO SCH ×8 (00:57→23:57)
[2020-04-03 04:57] VITALS: BP 118/69
[2020-04-03] MEDS: METHOCARBAMOL 500 MG TABLET PO SCH (09:26)
[2020-04-03] MEDS: LORATADINE 10 MG TABLET PO SCH (09:26)
[2020-04-03] MEDS: HYDROCORTISONE 100 MG INJ. IVPush SCH ×2 (09:26→19:37)
[2020-04-03] MEDS: SENNA/DOCUSATE TABLET PO SCH ×2 (09:26→19:37)
[2020-04-03] MEDS: SERTRALINE 100MG TABLET PO SCH (09:26)
[2020-04-03] MEDS: FUROSEMIDE 40 MG/4 ML IV SCH ×2 (09:27→17:13)
[2020-04-03] MEDS: THIAMINE 100MG TABLET PO SCH (09:30)
[2020-04-03] MEDS: CHOLECALCIFEROL 5,000u TAB PO SCH (09:30)
[2020-04-03] MEDS: ZINC SULFATE 220 MG CAPSULE PO SCH (09:30)
[2020-04-03] MEDS: ASCORBIC ACID 500 MG TABLET PO SCH ×2 (09:30→17:13)
[2020-04-03] MEDS: LIDODERM REMOVE PATCH NOTE XX SCH (09:30)
[2020-04-03] MEDS: ENOXAPARIN 120MG/0.8ML SQ SCH ×2 (09:32→19:38)
[2020-04-03] MEDS: CEFTRIAXONE PMX 1GM/50ML 50 ML IV SCH (17:13)
[2020-04-03] MEDS: SIMVASTATIN 40 MG TABLET PO SCH (19:37)
[2020-04-03] MEDS: LIDODERM 5% PATCH TD SCH ×2 (19:40→19:44)
[2020-04-04] MEDS: GUAIFENESIN/COD200MG-20MG/10ML LIQUID PO SCH ×5 (04:07→20:00)
[2020-04-04 04:26] LABS: MEAN CORPUSCULAR HEMOGLOBIN 30.3 pg (27.5-34.5); MEAN CORPUSCULAR HGB CONC 33.4 g/dL (33.2-36.2); MEAN PLATELET VOLUME 8.7 fL (7.4-10.4); PLATELET COUNT 320 x10^3/uL (130-400); RED CELL DISTRIBUTION WIDTH 16.5 % (9.4-14.8)
[2020-04-04 04:34] LABS: ANION GAP 4 mmol/L (5-15); CALCIUM 8.3 mg/dL (8.5-10.1); CHLORIDE 99 mmol/L (98-107); CREATININE 0.99 mg/dL (0.7-1.3)
[2020-04-04 05:49] LABS: MD YES
[2020-04-04 05:54] LABS: ANISOCYTOSIS 1+; BAND#(MANUAL) 2.01 x10^3/uL; BANDS%(MANUAL) 10 % (0-7); EOS% (MANUAL) 1 % (1-7); LYMPH#(MANUAL) 1.81 x10^3/uL (1-3.4); LYMPHS% (MANUAL) 9 % (22-44); MONOS#(MANUAL) 1.01 x10^3/uL (0.3-2.7); MONOS% (MANUAL) 5 % (2-9); POLYCHROMASIA 1+; REACTIVE LYMPHS % (MANUAL) 2 % (0-0); SEG#(MANUAL) 14.67 x10^3/uL (1.8-6.8); SEGS% (MANUAL) 73 % (42-75)
[2020-04-04 05:55] LABS: <PLATELET ESTIMATE> ADEQUATE; LARGE PLATELETS 1+; OVALOCYTES 1+
[2020-04-04 06:02] VITALS: BP 114/71
[2020-04-04] MEDS: METHOCARBAMOL 500 MG TABLET PO SCH (09:05)
[2020-04-04] MEDS: HYDROCORTISONE 100 MG INJ. IVPush SCH ×2 (09:06→20:54)
[2020-04-04] MEDS: SERTRALINE 100MG TABLET PO SCH (09:06)
[2020-04-04] MEDS: POTASSIUM CHLORIDE 20 MEQ TAB.ER.PRT PO SCH ×2 (09:06→17:30)
[2020-04-04] MEDS: ZINC SULFATE 220 MG CAPSULE PO SCH (09:06)
[2020-04-04] MEDS: LORATADINE 10 MG TABLET PO SCH (09:06)
[2020-04-04] MEDS: FUROSEMIDE 40 MG/4 ML IV SCH ×2 (09:06→17:31)
[2020-04-04] MEDS: CHOLECALCIFEROL 5,000u TAB PO SCH (09:06)
[2020-04-04] MEDS: SENNA/DOCUSATE TABLET PO SCH ×2 (09:06→20:54)
[2020-04-04] MEDS: THIAMINE 100MG TABLET PO SCH (09:06)
[2020-04-04] MEDS: ASCORBIC ACID 500 MG TABLET PO SCH ×2 (09:07→17:30)
[2020-04-04] MEDS: ENOXAPARIN 120MG/0.8ML SQ SCH ×2 (09:12→20:55)
[2020-04-04] MEDS: LIDODERM REMOVE PATCH NOTE XX SCH (09:12)
[2020-04-04] MEDS: SIMVASTATIN 40 MG TABLET PO SCH (20:55)
[2020-04-04] MEDS: LIDODERM 5% PATCH TD SCH (20:55)
[2020-04-05] MEDS: GUAIFENESIN/COD200MG-20MG/10ML LIQUID PO SCH ×4 (00:11→12:00)
[2020-04-05 06:00] VITALS: BP 126/62
[2020-04-05] MEDS: HYDROCORTISONE 100 MG INJ. IVPush SCH ×2 (08:30→21:01)
[2020-04-05] MEDS: FUROSEMIDE 40 MG/4 ML IV SCH ×2 (08:44→16:43)
[2020-04-05] MEDS: ASCORBIC ACID 500 MG TABLET PO SCH ×2 (08:45→16:43)
[2020-04-05] MEDS: CHOLECALCIFEROL 5,000u TAB PO SCH (08:45)
[2020-04-05] MEDS: ZINC SULFATE 220 MG CAPSULE PO SCH (08:45)
[2020-04-05] MEDS: LORATADINE 10 MG TABLET PO SCH (08:45)
[2020-04-05] MEDS: POTASSIUM CHLORIDE 20 MEQ TAB.ER.PRT PO SCH ×2 (08:45→16:43)
[2020-04-05] MEDS: METHOCARBAMOL 500 MG TABLET PO SCH (08:45)
[2020-04-05] MEDS: ENOXAPARIN 120MG/0.8ML SQ SCH ×2 (08:46→21:01)
[2020-04-05] MEDS: SERTRALINE 100MG TABLET PO SCH (08:46)
[2020-04-05] MEDS: THIAMINE 100MG TABLET PO SCH (09:00)
[2020-04-05] MEDS: SENNA/DOCUSATE TABLET PO SCH ×2 (09:00→21:01)
[2020-04-05] MEDS: LIDODERM REMOVE PATCH NOTE XX SCH (09:10)
[2020-04-05] MEDS ORDERED: GLUCAGON 1 MG IM PRN (10:30)
[2020-04-05] MEDS ORDERED: PHARMACY MAY ADJ FOR RENAL FX MC SCH (10:30)
[2020-04-05] MEDS ORDERED: DEXTROSE 50%, 50ML SYRINGE IVPush PRN (10:30)
[2020-04-05] MEDS ORDERED: LIDOCAINE-MPF 1%, 5ML ONE (11:09)
[2020-04-05] MEDS: FENTANYL PF 1,000 MCG in SODIUM CHLORIDE 0.9% 80 ML IV PRN (12:40)
[2020-04-05] MEDS: PROPOFOL 100 ML IV PRN ×4 (12:41→22:06)
--- NOTE | 2020-04-05 13:55 | NUR ---
TF GOAL when ordered: w/ propofol: VITAL HIGH PROTEIN @ 70ML/HR off propofol: VITAL HIGH PROTEIN @ 80ML/HR
[2020-04-05] MEDS ORDERED: PROPOFOL 10 MG/ML, 20ML ONE (14:00)
[2020-04-05] MEDS ORDERED: PROPOFOL 10 MG/ML, 100ML IV ONE (14:00)
[2020-04-05] MEDS ORDERED: ROCURONIUM 10MG/ML,5ML ONE (14:00)
[2020-04-05] MEDS: MEROPENEM 1 GM in SODIUM CHLORIDE 0.9% 100 ML IV SCH (16:00)
[2020-04-05] MEDS: POLYETHYLENE GLYCOL 17 GM PACKET PO PRN (19:38)
[2020-04-05] MEDS: SIMVASTATIN 40 MG TABLET PO SCH (21:01)
[2020-04-05] MEDS: LIDODERM 5% PATCH TD SCH (22:05)
[2020-04-06] MEDS: MEROPENEM 1 GM in SODIUM CHLORIDE 0.9% 100 ML IV SCH ×3 (00:03→17:55)
[2020-04-06] MEDS: PROPOFOL 100 ML IV PRN ×4 (03:27→23:27)
[2020-04-06 04:49] LABS: MEAN CORPUSCULAR HEMOGLOBIN 30.2 pg (27.5-34.5); MEAN CORPUSCULAR HGB CONC 33.3 g/dL (33.2-36.2); MEAN PLATELET VOLUME 8.9 fL (7.4-10.4); PLATELET COUNT 355 x10^3/uL (130-400); RED BLOOD COUNT 5.01 x10^6/uL (4.38-5.82); RED CELL DISTRIBUTION WIDTH 16.6 % (9.4-14.8)
[2020-04-06 04:56] LABS: ANION GAP 8 mmol/L (5-15); CALCIUM 8.7 mg/dL (8.5-10.1); CHLORIDE 100 mmol/L (98-107); CREATININE 0.92 mg/dL (0.7-1.3)
[2020-04-06 04:57] LABS: BILIRUBIN,TOTAL 0.5 mg/dL (0.2-1.0)
[2020-04-06 05:47] LABS: MD YES
[2020-04-06 05:48] LABS: BAND#(MANUAL) 0.84 x10^3/uL; BANDS%(MANUAL) 4 % (0-7); EOS#(MANUAL) 0.21 x10^3/uL (0.0-0.4); EOS% (MANUAL) 1 % (1-7); METAMYELOCYTES# (MANUAL) 0.21 x10^3/uL (0-0); METAMYELOCYTES% (MANUAL) 1 % (0-1); REACTIVE LYMPHS # (MANUAL) 0.21 x10^3/uL (0-0); REACTIVE LYMPHS % (MANUAL) 1 % (0-0)
[2020-04-06 05:49] LABS: LYMPH#(MANUAL) 1.05 x10^3/uL (1-3.4); LYMPHS% (MANUAL) 5 % (22-44); MONOS#(MANUAL) 0.42 x10^3/uL (0.3-2.7); MONOS% (MANUAL) 2 % (2-9); SEG#(MANUAL) 18.06 x10^3/uL (1.8-6.8); SEGS% (MANUAL) 86 % (42-75)
[2020-04-06 05:50] LABS: ANISOCYTOSIS 1+; POLYCHROMASIA 1+
[2020-04-06 05:51] LABS: <PLATELET ESTIMATE> ADEQUATE; <PLT MORPHOLOGY> NORMAL PLT MORPH
[2020-04-06] MEDS: POTASSIUM CHLORIDE 20 MEQ TAB.ER.PRT PO SCH ×2 (08:16→17:10)
[2020-04-06] MEDS: SENNA/DOCUSATE TABLET PO SCH ×2 (08:17→20:24)
[2020-04-06] MEDS: THIAMINE 100MG TABLET PO SCH (08:17)
[2020-04-06] MEDS: FUROSEMIDE 40 MG/4 ML IV SCH ×2 (08:17→17:10)
[2020-04-06] MEDS: CHOLECALCIFEROL 5,000u TAB PO SCH (08:17)
[2020-04-06] MEDS: ASCORBIC ACID 500 MG TABLET PO SCH ×2 (08:18→17:11)
[2020-04-06] MEDS: METHOCARBAMOL 500 MG TABLET PO SCH (08:18)
[2020-04-06] MEDS: ENOXAPARIN 120MG/0.8ML SQ SCH ×2 (08:18→20:49)
[2020-04-06] MEDS: ZINC SULFATE 220 MG CAPSULE PO SCH (08:18)
[2020-04-06] MEDS: SERTRALINE 100MG TABLET PO SCH (08:18)
[2020-04-06] MEDS: HYDROCORTISONE 100 MG INJ. IVPush SCH ×2 (08:19→20:23)
[2020-04-06] MEDS: LIDODERM REMOVE PATCH NOTE XX SCH (09:30)
[2020-04-06] MEDS: FENTANYL PF 1,000 MCG in SODIUM CHLORIDE 0.9% 80 ML IV PRN (15:20)
[2020-04-06] MEDS: SIMVASTATIN 40 MG TABLET PO SCH (20:24)
[2020-04-06] MEDS: LIDODERM 5% PATCH TD SCH (21:27)
[2020-04-07] MEDS: MEROPENEM 1 GM in SODIUM CHLORIDE 0.9% 100 ML IV SCH ×3 (02:53→17:52)
[2020-04-07] MEDS: PROPOFOL 100 ML IV PRN ×6 (03:29→21:37)
[2020-04-07 04:55] LABS: BASOPHILS % (AUTO) 0 % (0-1); EOSINOPHILS % (AUTO) 2 % (1-7); LYMPHOCYTES % (AUTO) 7 % (22-44); MEAN CORPUSCULAR HEMOGLOBIN 30.3 pg (27.5-34.5); MEAN PLATELET VOLUME 8.7 fL (7.4-10.4); MONOCYTES % (AUTO) 6 % (2-9); NEUTROPHILS % (AUTO) 85 % (42-75); PLATELET COUNT 378 x10^3/uL (130-400); RED BLOOD COUNT 5.21 x10^6/uL (4.38-5.82); RED CELL DISTRIBUTION WIDTH 16.7 % (9.4-14.8)
[2020-04-07 05:06] LABS: ANION GAP 3 mmol/L (5-15); CALCIUM 9.3 mg/dL (8.5-10.1); CHLORIDE 105 mmol/L (98-107)
[2020-04-07 05:08] LABS: BILIRUBIN,TOTAL 0.4 mg/dL (0.2-1.0); CREATININE 0.95 mg/dL (0.7-1.3)
[2020-04-07 05:54] LABS: MD SCAN
[2020-04-07] MEDS: POLYETHYLENE GLYCOL 17 GM PACKET PO PRN (08:02)
[2020-04-07] MEDS: FUROSEMIDE 40 MG/4 ML IV SCH ×2 (08:03→17:01)
[2020-04-07] MEDS: POTASSIUM CHLORIDE 20 MEQ TAB.ER.PRT PO SCH ×2 (08:04→17:01)
[2020-04-07] MEDS: ASCORBIC ACID 500 MG TABLET PO SCH (08:04)
[2020-04-07] MEDS: CHOLECALCIFEROL 5,000u TAB PO SCH (08:04)
[2020-04-07] MEDS: HYDROCORTISONE 100 MG INJ. IVPush SCH ×2 (08:04→20:31)
[2020-04-07] MEDS: METHOCARBAMOL 500 MG TABLET PO SCH (08:05)
[2020-04-07] MEDS: SENNA/DOCUSATE TABLET PO SCH ×2 (08:05→20:31)
[2020-04-07] MEDS: ZINC SULFATE 220 MG CAPSULE PO SCH (08:05)
[2020-04-07] MEDS: SERTRALINE 100MG TABLET PO SCH (08:05)
[2020-04-07] MEDS: THIAMINE 100MG TABLET PO SCH (08:05)
[2020-04-07] MEDS: ENOXAPARIN 120MG/0.8ML SQ SCH ×2 (08:06→20:32)
[2020-04-07] MEDS: LIDODERM REMOVE PATCH NOTE XX SCH (09:30)
[2020-04-07] MEDS: FENTANYL PF 1,000 MCG in SODIUM CHLORIDE 0.9% 80 ML IV PRN (15:37)
[2020-04-07] MEDS: SIMVASTATIN 40 MG TABLET PO SCH (20:31)
[2020-04-07] MEDS: LIDODERM 5% PATCH TD SCH (21:36)
[2020-04-08] MEDS: PROPOFOL 100 ML IV PRN ×6 (01:19→23:58)
[2020-04-08] MEDS: MEROPENEM 1 GM in SODIUM CHLORIDE 0.9% 100 ML IV SCH ×3 (02:33→17:30)
[2020-04-08 05:11] LABS: BASOPHILS % (AUTO) 0 % (0-1); EOSINOPHILS % (AUTO) 1 % (1-7); LYMPHOCYTES % (AUTO) 9 % (22-44); MEAN CORPUSCULAR HEMOGLOBIN 30.6 pg (27.5-34.5); MEAN CORPUSCULAR HGB CONC 33.2 g/dL (33.2-36.2); MEAN PLATELET VOLUME 8.7 fL (7.4-10.4); MONOCYTES % (AUTO) 6 % (2-9); NEUTROPHILS % (AUTO) 83 % (42-75); PLATELET COUNT 351 x10^3/uL (130-400); RED BLOOD COUNT 5.26 x10^6/uL (4.38-5.82); RED CELL DISTRIBUTION WIDTH 16.6 % (9.4-14.8)
[2020-04-08 05:21] LABS: ANION GAP 3 mmol/L (5-15); CALCIUM 9.2 mg/dL (8.5-10.1); CHLORIDE 107 mmol/L (98-107); CREATININE 0.94 mg/dL (0.7-1.3); TRIGLYCERIDES 261 mg/dL (50-200)
[2020-04-08 05:22] LABS: BILIRUBIN,TOTAL 0.4 mg/dL (0.2-1.0)
[2020-04-08 05:45] LABS: MD SCAN
[2020-04-08] MEDS ORDERED: POTASSIUM CHLORIDE 20 MEQ TAB.ER.PRT PO SCH (08:46)
[2020-04-08] MEDS: SERTRALINE 100MG TABLET PO SCH (09:00)
[2020-04-08] MEDS: LIDODERM REMOVE PATCH NOTE XX SCH (09:30)
[2020-04-08] MEDS ORDERED: POTASSIUM CHLORIDE 20 MEQ PACKET ONE (10:12)
[2020-04-08] MEDS: SENNA/DOCUSATE TABLET PO SCH ×2 (10:14→20:07)
[2020-04-08] MEDS: METHOCARBAMOL 500 MG TABLET PO SCH (10:15)
[2020-04-08] MEDS: FENTANYL PF 1,000 MCG in SODIUM CHLORIDE 0.9% 80 ML IV PRN (10:21)
[2020-04-08] MEDS: FUROSEMIDE 40 MG/4 ML IV SCH ×2 (10:22→20:07)
[2020-04-08] MEDS: HYDROCORTISONE 100 MG INJ. IVPush SCH ×2 (10:22→20:07)
[2020-04-08] MEDS: ENOXAPARIN 120MG/0.8ML SQ SCH ×2 (10:22→20:08)
[2020-04-08] MEDS: POLYETHYLENE GLYCOL 17 GM PACKET PO PRN (10:23)
[2020-04-08] MEDS: LACTULOSE 20 GM/30 ML UDC NG PRN (10:23)
[2020-04-08] MEDS: POTASSIUM CHLORIDE 20 MEQ PACKET PO SCH (20:07)
[2020-04-08] MEDS: SIMVASTATIN 40 MG TABLET PO SCH (20:07)
[2020-04-08] MEDS: LIDODERM 5% PATCH TD SCH (22:39)
[2020-04-09] MEDS: MAGNESIUM HYDROXIDE 8%, 30ML UDC PO PRN (00:58)
[2020-04-09] MEDS: MEROPENEM 1 GM in SODIUM CHLORIDE 0.9% 100 ML IV SCH ×3 (02:27→16:49)
[2020-04-09] MEDS: PROPOFOL 100 ML IV PRN ×6 (02:29→23:13)
[2020-04-09 04:46] LABS: BASOPHILS % (AUTO) 1 % (0-1); EOSINOPHILS % (AUTO) 1 % (1-7); LYMPHOCYTES % (AUTO) 11 % (22-44); MEAN CORPUSCULAR HEMOGLOBIN 30.5 pg (27.5-34.5); MEAN CORPUSCULAR HGB CONC 32.7 g/dL (33.2-36.2); MEAN PLATELET VOLUME 8.8 fL (7.4-10.4); MONOCYTES % (AUTO) 6 % (2-9); NEUTROPHILS % (AUTO) 82 % (42-75); PLATELET COUNT 348 x10^3/uL (130-400)
[2020-04-09 04:56] LABS: CHLORIDE 108 mmol/L (98-107)
[2020-04-09 05:07] LABS: ALANINE AMINOTRANSFERASE 47 U/L (12-78); ALBUMIN 2.1 g/dL (3.4-5.0); ALKALINE PHOSPHATASE 75 U/L (45-117); ANION GAP 3 mmol/L (5-15); BILIRUBIN,TOTAL 0.3 mg/dL (0.2-1.0); CALCIUM 9.1 mg/dL (8.5-10.1)
[2020-04-09 05:59] LABS: MD SCAN
[2020-04-09] MEDS: HYDROCORTISONE 100 MG INJ. IVPush SCH ×2 (08:02→20:16)
[2020-04-09] MEDS: METHOCARBAMOL 500 MG TABLET PO SCH (08:02)
[2020-04-09] MEDS: FUROSEMIDE 40 MG/4 ML IV SCH ×2 (08:02→20:16)
[2020-04-09] MEDS: SERTRALINE 100MG TABLET PO SCH (08:03)
[2020-04-09] MEDS: SENNA/DOCUSATE TABLET PO SCH ×2 (08:03→20:16)
[2020-04-09] MEDS: LIDODERM REMOVE PATCH NOTE XX SCH (08:04)
[2020-04-09] MEDS: POTASSIUM CHLORIDE 20 MEQ PACKET PO SCH ×2 (08:04→20:16)
[2020-04-09] MEDS: ENOXAPARIN 120MG/0.8ML SQ SCH ×2 (08:04→20:18)
[2020-04-09] MEDS: FENTANYL PF 1,000 MCG in SODIUM CHLORIDE 0.9% 80 ML IV PRN (08:32)
[2020-04-09] MEDS ORDERED: METHYLNALTREXONE 12 MG/0.6 ML SYR SQ SCH (09:30)
[2020-04-09] MEDS: POLYETHYLENE GLYCOL 17 GM PACKET PO PRN (12:11)
[2020-04-09] MEDS: LACTULOSE 20 GM/30 ML UDC NG PRN (12:11)
[2020-04-09] MEDS: SIMVASTATIN 40 MG TABLET PO SCH (20:16)
[2020-04-09] MEDS: LIDODERM 5% PATCH TD SCH (23:12)
[2020-04-10] MEDS: MEROPENEM 1 GM in SODIUM CHLORIDE 0.9% 100 ML IV SCH ×3 (02:22→17:03)
[2020-04-10 05:15] LABS: CALCIUM 8.9 mg/dL (8.5-10.1); CREATININE 0.94 mg/dL (0.7-1.3); HCT (SEDRATE) 48.6 % (39.2-51.8)
[2020-04-10 05:20] LABS: D-DIMER 0.95 ug/mlFEU (0.00-0.52)
[2020-04-10 05:21] LABS: BASOPHILS % (AUTO) 1 % (0-1); EOSINOPHILS % (AUTO) 1 % (1-7); LYMPHOCYTES % (AUTO) 11 % (22-44); MEAN CORPUSCULAR HGB CONC 32.2 g/dL (33.2-36.2); MONOCYTES % (AUTO) 7 % (2-9); NEUTROPHILS % (AUTO) 81 % (42-75); PLATELET COUNT 340 x10^3/uL (130-400); RED BLOOD COUNT 5.18 x10^6/uL (4.38-5.82); RED CELL DISTRIBUTION WIDTH 16.7 % (9.4-14.8)
[2020-04-10 05:23] LABS: BILIRUBIN,TOTAL 0.4 mg/dL (0.2-1.0); CREATINE KINASE, TOTAL 98 U/L (39-308)
[2020-04-10 05:28] LABS: ANION GAP 4 mmol/L (5-15); CHLORIDE 110 mmol/L (98-107)
[2020-04-10] MEDS: PROPOFOL 100 ML IV PRN ×5 (05:48→23:58)
[2020-04-10] MEDS: FENTANYL PF 1,000 MCG in SODIUM CHLORIDE 0.9% 80 ML IV PRN (05:50)
[2020-04-10 06:04] LABS: MD SCAN
[2020-04-10] MEDS: SERTRALINE 100MG TABLET PO SCH (09:00)
[2020-04-10] MEDS: METHOCARBAMOL 500 MG TABLET PO SCH (09:30)
[2020-04-10] MEDS: LIDODERM REMOVE PATCH NOTE XX SCH (09:30)
[2020-04-10] MEDS: HYDROCORTISONE 100 MG INJ. IVPush SCH ×2 (09:31→22:03)
[2020-04-10] MEDS: SENNA/DOCUSATE TABLET PO SCH ×2 (09:31→22:02)
[2020-04-10] MEDS: POTASSIUM CHLORIDE 20 MEQ PACKET PO SCH (09:31)
[2020-04-10] MEDS: FUROSEMIDE 40 MG/4 ML IV SCH (09:31)
[2020-04-10] MEDS: ENOXAPARIN 120MG/0.8ML SQ SCH ×2 (09:32→22:11)
[2020-04-10] MEDS: SIMVASTATIN 40 MG TABLET PO SCH (22:03)
[2020-04-10] MEDS: LIDODERM 5% PATCH TD SCH (23:58)
[2020-04-11] MEDS: MEROPENEM 1 GM in SODIUM CHLORIDE 0.9% 100 ML IV SCH ×3 (03:07→17:29)
[2020-04-11] MEDS: PROPOFOL 100 ML IV PRN ×3 (04:37→14:16)
[2020-04-11 04:44] LABS: BASOPHILS % (AUTO) 1 % (0-1); EOSINOPHILS % (AUTO) 1 % (1-7); LYMPHOCYTES % (AUTO) 13 % (22-44); MEAN CORPUSCULAR HEMOGLOBIN 30.3 pg (27.5-34.5); MEAN CORPUSCULAR HGB CONC 32.6 g/dL (33.2-36.2); MEAN PLATELET VOLUME 9.1 fL (7.4-10.4); MONOCYTES % (AUTO) 5 % (2-9); NEUTROPHILS % (AUTO) 79 % (42-75); PLATELET COUNT 315 x10^3/uL (130-400); RED BLOOD COUNT 5.07 x10^6/uL (4.38-5.82); RED CELL DISTRIBUTION WIDTH 16.7 % (9.4-14.8)
[2020-04-11 04:47] LABS: MD NO
[2020-04-11 04:50] LABS: CALCIUM 8.5 mg/dL (8.5-10.1); CREATININE 0.88 mg/dL (0.7-1.3); TRIGLYCERIDES 249 mg/dL (50-200)
[2020-04-11 04:51] LABS: BILIRUBIN,TOTAL 0.4 mg/dL (0.2-1.0)
[2020-04-11 04:59] LABS: D-DIMER 0.85 ug/mlFEU (0.00-0.52); FIO2 60 %
[2020-04-11 05:19] LABS: ANION GAP 1 mmol/L (5-15); CHLORIDE 107 mmol/L (98-107)
[2020-04-11] MEDS: FENTANYL PF 1,000 MCG in SODIUM CHLORIDE 0.9% 80 ML IV PRN ×2 (05:19→23:00)
[2020-04-11] MEDS ORDERED: DEXTROSE 4 GM TAB.CHEW PO PRN (07:30)
[2020-04-11] MEDS ORDERED: GLUCAGON 1 MG IM PRN (07:30)
[2020-04-11] MEDS ORDERED: DEXTROSE 50%, 50ML SYRINGE IVPush PRN (07:30)
[2020-04-11] MEDS: SENNA/DOCUSATE TABLET PO SCH ×2 (08:43→20:08)
[2020-04-11] MEDS: ENOXAPARIN 40 MG/0.4 ML SQ SCH ×2 (08:44→20:08)
[2020-04-11] MEDS: SERTRALINE 100MG TABLET PO SCH (08:44)
[2020-04-11] MEDS: LIDODERM REMOVE PATCH NOTE XX SCH (08:44)
[2020-04-11] MEDS: HYDROCORTISONE 100 MG INJ. IVPush SCH ×2 (08:45→20:07)
[2020-04-11] MEDS ORDERED: METHYLNALTREXONE 12 MG/0.6 ML SYR SQ PRN (09:00)
[2020-04-11] MEDS: METHOCARBAMOL 500 MG TABLET PO SCH (09:00)
[2020-04-11] MEDS: INSULIN LISPRO 100 UNITS/ML, PEN SQ-INSULIN SCH ×3 (09:32→20:12)
[2020-04-11] MEDS: POTASSIUM CHLORIDE 10% 20 MEQ/15 ML UDC PO SCH ×2 (09:40→20:07)
[2020-04-11] MEDS: SODIUM CHLORIDE FLUSH 10ML SYR IVF SCH ×2 (09:40→20:07)
[2020-04-11] MEDS: FUROSEMIDE 40 MG/4 ML IV SCH ×2 (09:40→20:07)
[2020-04-11] MEDS ORDERED: INSULIN LISPRO 100 UNITS/ML, PEN SQ-INSULIN SCH (11:00)
[2020-04-11] MEDS: SIMVASTATIN 40 MG TABLET PO SCH (20:08)
[2020-04-11] MEDS: LIDODERM 5% PATCH TD SCH (22:59)
[2020-04-12] MEDS: PROPOFOL 100 ML IV PRN ×3 (00:56→16:02)
[2020-04-12] MEDS: MEROPENEM 1 GM in SODIUM CHLORIDE 0.9% 100 ML IV SCH ×2 (02:48→09:43)
[2020-04-12 03:54] LABS: BASOPHILS % (AUTO) 1 % (0-1); EOSINOPHILS % (AUTO) 1 % (1-7); LYMPHOCYTES % (AUTO) 14 % (22-44); MEAN CORPUSCULAR HEMOGLOBIN 30.2 pg (27.5-34.5); MEAN CORPUSCULAR HGB CONC 32.6 g/dL (33.2-36.2); MEAN PLATELET VOLUME 9.3 fL (7.4-10.4); MONOCYTES % (AUTO) 6 % (2-9); NEUTROPHILS % (AUTO) 78 % (42-75); PLATELET COUNT 324 x10^3/uL (130-400); RED BLOOD COUNT 5.15 x10^6/uL (4.38-5.82); RED CELL DISTRIBUTION WIDTH 16.3 % (9.4-14.8)
[2020-04-12 04:01] LABS: ANION GAP 4 mmol/L (5-15); CALCIUM 8.8 mg/dL (8.5-10.1); CHLORIDE 108 mmol/L (98-107)
[2020-04-12 04:04] LABS: BILIRUBIN,TOTAL 0.5 mg/dL (0.2-1.0); CREATININE 0.95 mg/dL (0.7-1.3)
[2020-04-12] MEDS: INSULIN LISPRO 100 UNITS/ML, PEN SQ-INSULIN SCH ×4 (04:11→20:08)
[2020-04-12 04:29] LABS: MD SCAN
[2020-04-12] MEDS: SERTRALINE 100MG TABLET PO SCH (08:00)
[2020-04-12] MEDS: METHOCARBAMOL 500 MG TABLET PO SCH (08:02)
[2020-04-12] MEDS: SENNA/DOCUSATE TABLET PO SCH ×2 (08:03→20:09)
[2020-04-12] MEDS: SODIUM CHLORIDE FLUSH 10ML SYR IVF SCH ×2 (09:00→20:09)
[2020-04-12] MEDS: LIDODERM REMOVE PATCH NOTE XX SCH (09:00)
[2020-04-12] MEDS: HYDROCORTISONE 100 MG INJ. IVPush SCH ×2 (09:41→20:09)
[2020-04-12] MEDS: FUROSEMIDE 40 MG/4 ML IV SCH ×2 (09:42→20:09)
[2020-04-12] MEDS: ENOXAPARIN 40 MG/0.4 ML SQ SCH ×2 (09:43→20:08)
[2020-04-12] MEDS: SIMVASTATIN 40 MG TABLET PO SCH (20:09)
[2020-04-12] MEDS: LIDODERM 5% PATCH TD SCH (22:59)
[2020-04-12] MEDS: FENTANYL PF 1,000 MCG in SODIUM CHLORIDE 0.9% 80 ML IV PRN (23:22)
[2020-04-13] MEDS: PROPOFOL 100 ML IV PRN ×3 (00:16→20:17)
[2020-04-13] MEDS: INSULIN LISPRO 100 UNITS/ML, PEN SQ-INSULIN SCH ×4 (04:04→21:24)
[2020-04-13 04:20] LABS: BASOPHILS % (AUTO) 0 % (0-1); EOSINOPHILS % (AUTO) 3 % (1-7); LYMPHOCYTES % (AUTO) 16 % (22-44); MEAN CORPUSCULAR HEMOGLOBIN 30.3 pg (27.5-34.5); MEAN CORPUSCULAR HGB CONC 32.6 g/dL (33.2-36.2); MEAN PLATELET VOLUME 9.4 fL (7.4-10.4); MONOCYTES % (AUTO) 6 % (2-9); NEUTROPHILS % (AUTO) 75 % (42-75); PLATELET COUNT 305 x10^3/uL (130-400); RED BLOOD COUNT 5.23 x10^6/uL (4.38-5.82)
[2020-04-13 04:28] LABS: ANION GAP 3 mmol/L (5-15); CALCIUM 8.6 mg/dL (8.5-10.1); CHLORIDE 108 mmol/L (98-107)
[2020-04-13 04:29] LABS: BILIRUBIN,TOTAL 0.4 mg/dL (0.2-1.0)
[2020-04-13 04:46] LABS: MD SCAN
[2020-04-13] MEDS: LIDODERM REMOVE PATCH NOTE XX SCH (08:00)
[2020-04-13] MEDS: SERTRALINE 100MG TABLET PO SCH (08:00)
[2020-04-13] MEDS: SODIUM CHLORIDE FLUSH 10ML SYR IVF SCH ×2 (08:00→20:55)
[2020-04-13] MEDS: SENNA/DOCUSATE TABLET PO SCH ×2 (08:07→20:53)
[2020-04-13] MEDS: HYDROCORTISONE 100 MG INJ. IVPush SCH ×2 (08:07→20:53)
[2020-04-13] MEDS: METHOCARBAMOL 500 MG TABLET PO SCH (08:08)
[2020-04-13] MEDS: FUROSEMIDE 40 MG/4 ML IV SCH ×2 (08:08→20:56)
[2020-04-13] MEDS: ENOXAPARIN 40 MG/0.4 ML SQ SCH ×2 (08:08→20:54)
[2020-04-13] MEDS: SIMVASTATIN 40 MG TABLET PO SCH (20:54)
[2020-04-13] MEDS: LIDODERM 5% PATCH TD SCH (20:55)
[2020-04-14] MEDS: PROPOFOL 100 ML IV PRN (03:45)
[2020-04-14] MEDS: FENTANYL PF 1,000 MCG in SODIUM CHLORIDE 0.9% 80 ML IV PRN (03:47)
[2020-04-14] MEDS: INSULIN LISPRO 100 UNITS/ML, PEN SQ-INSULIN SCH ×4 (03:47→21:38)
[2020-04-14 04:44] LABS: BASOPHILS % (AUTO) 1 % (0-1); EOSINOPHILS % (AUTO) 2 % (1-7); LYMPHOCYTES % (AUTO) 12 % (22-44); MEAN CORPUSCULAR HEMOGLOBIN 30.1 pg (27.5-34.5); MEAN CORPUSCULAR HGB CONC 32.6 g/dL (33.2-36.2); MEAN PLATELET VOLUME 9.4 fL (7.4-10.4); MONOCYTES % (AUTO) 8 % (2-9); NEUTROPHILS % (AUTO) 78 % (42-75); PLATELET COUNT 313 x10^3/uL (130-400); RED BLOOD COUNT 5.57 x10^6/uL (4.38-5.82); RED CELL DISTRIBUTION WIDTH 16.8 % (9.4-14.8)
[2020-04-14 04:49] LABS: ANION GAP 3 mmol/L (5-15); CALCIUM 9.1 mg/dL (8.5-10.1); CHLORIDE 107 mmol/L (98-107); CREATININE 0.96 mg/dL (0.7-1.3); TRIGLYCERIDES 219 mg/dL (50-200)
[2020-04-14 04:50] LABS: BILIRUBIN,TOTAL 0.7 mg/dL (0.2-1.0)
[2020-04-14 05:21] LABS: MD SCAN
[2020-04-14] MEDS: FUROSEMIDE 40 MG/4 ML IV SCH (08:21)
[2020-04-14] MEDS: ENOXAPARIN 40 MG/0.4 ML SQ SCH ×2 (08:21→21:31)
[2020-04-14] MEDS: HYDROCORTISONE 100 MG INJ. IVPush SCH ×2 (08:21→21:31)
[2020-04-14] MEDS: SENNA/DOCUSATE TABLET PO SCH ×2 (08:22→21:31)
[2020-04-14] MEDS: SERTRALINE 100MG TABLET PO SCH (08:22)
[2020-04-14] MEDS: METHOCARBAMOL 500 MG TABLET PO SCH (08:22)
[2020-04-14] MEDS: SODIUM CHLORIDE FLUSH 10ML SYR IVF SCH ×2 (08:22→21:34)
[2020-04-14] MEDS ORDERED: POTASSIUM CHLORIDE 20 MEQ PACKET PO ONE (09:00)
[2020-04-14] MEDS: LIDODERM REMOVE PATCH NOTE XX SCH (09:30)
[2020-04-14] MEDS ORDERED: AcetaZOLAMIDE INJ 500 MG IVPush ONE (13:30)
[2020-04-14] MEDS: SIMVASTATIN 40 MG TABLET PO SCH (21:31)
[2020-04-14] MEDS: LIDODERM 5% PATCH TD SCH (23:00)
[2020-04-15 03:29] LABS: BASOPHILS % (AUTO) 1 % (0-1); EOSINOPHILS % (AUTO) 2 % (1-7); LYMPHOCYTES % (AUTO) 12 % (22-44); MEAN CORPUSCULAR HEMOGLOBIN 30.5 pg (27.5-34.5); MEAN PLATELET VOLUME 9.5 fL (7.4-10.4); MONOCYTES % (AUTO) 7 % (2-9); NEUTROPHILS % (AUTO) 79 % (42-75); PLATELET COUNT 284 x10^3/uL (130-400); RED BLOOD COUNT 5.24 x10^6/uL (4.38-5.82); RED CELL DISTRIBUTION WIDTH 16.9 % (9.4-14.8)
[2020-04-15 03:42] LABS: ANION GAP 5 mmol/L (5-15); CALCIUM 8.5 mg/dL (8.5-10.1); CHLORIDE 104 mmol/L (98-107)
[2020-04-15 03:45] LABS: BILIRUBIN,TOTAL 0.8 mg/dL (0.2-1.0); CREATININE 0.91 mg/dL (0.7-1.3)
[2020-04-15 03:57] LABS: MD SCAN
[2020-04-15] MEDS: INSULIN LISPRO 100 UNITS/ML, PEN SQ-INSULIN SCH ×5 (04:05→21:31)
[2020-04-15] MEDS ORDERED: POTASSIUM CHLORIDE 20 MEQ TAB.ER.PRT PO ONE (07:30)
[2020-04-15] MEDS: METHOCARBAMOL 500 MG TABLET PO SCH (08:15)
[2020-04-15] MEDS: SERTRALINE 100MG TABLET PO SCH (08:15)
[2020-04-15] MEDS: HYDROCORTISONE 100 MG INJ. IVPush SCH (08:15)
[2020-04-15] MEDS: FUROSEMIDE 40 MG/4 ML IV SCH (08:15)
[2020-04-15] MEDS: SODIUM CHLORIDE FLUSH 10ML SYR IVF SCH ×2 (08:16→21:29)
[2020-04-15] MEDS: ENOXAPARIN 40 MG/0.4 ML SQ SCH ×2 (08:17→21:00)
[2020-04-15] MEDS: SENNA/DOCUSATE TABLET PO SCH ×2 (08:20→21:00)
[2020-04-15] MEDS: LIDODERM REMOVE PATCH NOTE XX SCH (09:30)
[2020-04-15] MEDS: HYDROCORTISONE 20 MG TABLET PO SCH (17:27)
[2020-04-15] MEDS: SIMVASTATIN 40 MG TABLET PO SCH (21:29)
[2020-04-15] MEDS: LIDODERM 5% PATCH TD SCH (21:31)
[2020-04-16 04:59] LABS: ANION GAP 5 mmol/L (5-15); CALCIUM 8.5 mg/dL (8.5-10.1); CHLORIDE 102 mmol/L (98-107); CREATININE 0.84 mg/dL (0.7-1.3)
[2020-04-16] MEDS ORDERED: POTASSIUM CHLORIDE 20 MEQ TAB.ER.PRT PO ONE (07:30)
[2020-04-16] MEDS ORDERED: POTASSIUM CHLORIDE 40 MEQ in SODIUM CHLORIDE 0.9% 500 ML IV ONE (07:30)
[2020-04-16] MEDS: INSULIN LISPRO 100 UNITS/ML, PEN SQ-INSULIN SCH ×4 (07:55→21:26)
[2020-04-16] MEDS: HYDROCORTISONE 20 MG TABLET PO SCH ×2 (07:56→17:00)
[2020-04-16] MEDS: SODIUM CHLORIDE FLUSH 10ML SYR IVF SCH ×2 (07:57→21:43)
[2020-04-16] MEDS: METHOCARBAMOL 500 MG TABLET PO SCH (07:57)
[2020-04-16] MEDS: FUROSEMIDE 40 MG/4 ML IV SCH (07:57)
[2020-04-16] MEDS: SENNA/DOCUSATE TABLET PO SCH ×2 (07:58→21:47)
[2020-04-16] MEDS: SERTRALINE 100MG TABLET PO SCH (07:58)
[2020-04-16] MEDS: ENOXAPARIN 40 MG/0.4 ML SQ SCH ×2 (07:58→21:47)
[2020-04-16] MEDS: LIDODERM REMOVE PATCH NOTE XX SCH (09:30)
[2020-04-16 17:34] VITALS: BP 115/78
[2020-04-16 19:07] VITALS: BP 115/80
[2020-04-16] MEDS: SIMVASTATIN 40 MG TABLET PO SCH (21:43)
[2020-04-16] MEDS: LIDODERM 5% PATCH TD SCH (21:46)
[2020-04-17 01:00] VITALS: BP 116/74
[2020-04-17 05:50] LABS: BASOPHILS % (AUTO) 1 % (0-1); EOSINOPHILS % (AUTO) 3 % (1-7); LYMPHOCYTES % (AUTO) 16 % (22-44); MEAN CORPUSCULAR HEMOGLOBIN 31.2 pg (27.5-34.5); MEAN CORPUSCULAR HGB CONC 33.5 g/dL (33.2-36.2); MEAN PLATELET VOLUME 9.4 fL (7.4-10.4); MONOCYTES % (AUTO) 7 % (2-9); NEUTROPHILS % (AUTO) 74 % (42-75); PLATELET COUNT 238 x10^3/uL (130-400); RED BLOOD COUNT 5.59 x10^6/uL (4.38-5.82); RED CELL DISTRIBUTION WIDTH 16.9 % (9.4-14.8)
[2020-04-17 05:51] LABS: MD NO
[2020-04-17 05:59] LABS: ANION GAP 4 mmol/L (5-15); CALCIUM 8.6 mg/dL (8.5-10.1); CHLORIDE 105 mmol/L (98-107)
[2020-04-17 06:00] LABS: CREATININE 0.92 mg/dL (0.7-1.3)
[2020-04-17 06:32] VITALS: BP 126/83
[2020-04-17] MEDS: HYDROCORTISONE 20 MG TABLET PO SCH ×2 (06:45→16:50)
[2020-04-17] MEDS: INSULIN LISPRO 100 UNITS/ML, PEN SQ-INSULIN SCH ×2 (06:45→11:00)
[2020-04-17] MEDS: ACETAMINOPHEN 325 MG TABLET PO PRN (06:45)
[2020-04-17] MEDS ORDERED: FUROSEMIDE 40 MG TABLET PO SCH (09:00)
[2020-04-17] MEDS: ENOXAPARIN 40 MG/0.4 ML SQ SCH (09:00)
[2020-04-17] MEDS: SERTRALINE 100MG TABLET PO SCH (09:15)
[2020-04-17] MEDS: SENNA/DOCUSATE TABLET PO SCH ×2 (09:15→20:15)
[2020-04-17] MEDS: METHOCARBAMOL 500 MG TABLET PO SCH (09:15)
[2020-04-17] MEDS: SODIUM CHLORIDE FLUSH 10ML SYR IVF SCH ×2 (09:16→20:14)
[2020-04-17] MEDS: LIDODERM REMOVE PATCH NOTE XX SCH (09:17)
[2020-04-17 13:51] VITALS: BP 107/75
[2020-04-17] MEDS ORDERED: TESTOSTERONE CYPIONATE 200 MG/ML IM ONE (17:00)
[2020-04-17] MEDS: LIDODERM 5% PATCH TD SCH (20:15)
[2020-04-17] MEDS: SIMVASTATIN 40 MG TABLET PO SCH (20:15)
[2020-04-17 20:28] VITALS: BP 102/61
[2020-04-17] MEDS ORDERED: APIXABAN 5 MG TABLET PO SCH (21:00)
[2020-04-18 02:43] VITALS: BP 112/73
[2020-04-18 06:28] VITALS: BP 111/73
[2020-04-18 06:30] LABS: BASOPHILS % (AUTO) 1 % (0-1); EOSINOPHILS % (AUTO) 4 % (1-7); LYMPHOCYTES % (AUTO) 21 % (22-44); MEAN CORPUSCULAR HEMOGLOBIN 30.8 pg (27.5-34.5); MEAN CORPUSCULAR HGB CONC 33.6 g/dL (33.2-36.2); MEAN PLATELET VOLUME 9.4 fL (7.4-10.4); MONOCYTES % (AUTO) 8 % (2-9); NEUTROPHILS % (AUTO) 67 % (42-75); PLATELET COUNT 228 x10^3/uL (130-400); RED BLOOD COUNT 5.63 x10^6/uL (4.38-5.82); RED CELL DISTRIBUTION WIDTH 16.9 % (9.4-14.8)
[2020-04-18 06:34] LABS: ANION GAP 5 mmol/L (5-15); CALCIUM 8.9 mg/dL (8.5-10.1); CHLORIDE 107 mmol/L (98-107)
[2020-04-18] MEDS: FUROSEMIDE 20 MG TABLET PO SCH (07:55)
[2020-04-18] MEDS: SERTRALINE 100MG TABLET PO SCH (07:55)
[2020-04-18] MEDS: HYDROCORTISONE 20 MG TABLET PO SCH ×2 (07:55→16:20)
[2020-04-18] MEDS: SENNA/DOCUSATE TABLET PO SCH ×2 (07:55→20:25)
[2020-04-18] MEDS: METHOCARBAMOL 500 MG TABLET PO SCH (07:55)
[2020-04-18] MEDS: ENOXAPARIN 40 MG/0.4 ML SQ SCH (07:56)
[2020-04-18] MEDS: SODIUM CHLORIDE FLUSH 10ML SYR IVF SCH ×2 (07:56→20:34)
[2020-04-18] MEDS: LIDODERM REMOVE PATCH NOTE XX SCH (07:57)
[2020-04-18] MEDS: ACETAMINOPHEN 325 MG TABLET PO PRN (08:02)
[2020-04-18 08:04] LABS: MD SCAN
[2020-04-18] MEDS ORDERED: BENZOCAINE/MENTHOL CAN TP PRN (10:30)
[2020-04-18] MEDS ORDERED: BENZONATATE 100 MG CAPSULE PO PRN (10:30)
[2020-04-18] MEDS ORDERED: PHENOL THROAT SPRAY BOTTLE MM PRN (11:00)
[2020-04-18 12:01] VITALS: BP 113/74
[2020-04-18] MEDS: BENZONATATE 100 MG CAPSULE PO SCH ×3 (12:36→20:25)
[2020-04-18 19:21] VITALS: BP 103/62
[2020-04-18] MEDS: SIMVASTATIN 40 MG TABLET PO SCH (20:25)
[2020-04-18] MEDS: LIDODERM 5% PATCH TD SCH (22:42)
[2020-04-19 00:12] VITALS: BP 116/71
[2020-04-19 01:56] VITALS: BP 123/82
[2020-04-19 06:37] VITALS: BP 112/69
[2020-04-19] MEDS: BENZONATATE 100 MG CAPSULE PO SCH (07:56)
[2020-04-19] MEDS: SERTRALINE 100MG TABLET PO SCH (07:57)
[2020-04-19] MEDS: METHOCARBAMOL 500 MG TABLET PO SCH (07:57)
[2020-04-19] MEDS: SODIUM CHLORIDE FLUSH 10ML SYR IVF SCH (07:57)
[2020-04-19] MEDS: FUROSEMIDE 20 MG TABLET PO SCH (07:57)
[2020-04-19] MEDS: SENNA/DOCUSATE TABLET PO SCH (07:57)
[2020-04-19] MEDS: HYDROCORTISONE 20 MG TABLET PO SCH (07:57)
[2020-04-19] MEDS: LIDODERM REMOVE PATCH NOTE XX SCH (07:58)
[2020-04-19] MEDS: ENOXAPARIN 40 MG/0.4 ML SQ SCH (07:58)
[2020-04-19 12:15] VITALS: BP 119/75
== END 2020-04-19 15:10 | disposition home or self-care (01) | DRG 207 ==
LOC: ED 12:53 → EDIP 12:59 → SUATTDRO 13:13 → ICU 19:29 → 4EST 04-16 17:29
PROVIDERS: ADMIT Internal Medicine; ATTEND Family Medicine
PROC: XW033E5 Introduction of Remdesivir Anti-infective into Peripheral Vein, Percutaneous Approach, New Technology Group 5 (ICD-10-PCS; 2020-03-28)
PROC: 30233R1 Transfusion of Nonautologous Platelets into Peripheral Vein, Percutaneous Approach (ICD-10-PCS; 2020-03-29)
PROC: 5A09357 Assistance with Respiratory Ventilation, Less than 24 Consecutive Hours, Continuous Positive Airway Pressure (ICD-10-PCS; 2020-03-30)
PROC: 5A09357 Assistance with Respiratory Ventilation, Less than 24 Consecutive Hours, Continuous Positive Airway Pressure (ICD-10-PCS; 2020-03-31)
PROC: 5A09357 Assistance with Respiratory Ventilation, Less than 24 Consecutive Hours, Continuous Positive Airway Pressure (ICD-10-PCS; 2020-04-01)
PROC: 5A09357 Assistance with Respiratory Ventilation, Less than 24 Consecutive Hours, Continuous Positive Airway Pressure (ICD-10-PCS; 2020-04-02)
PROC: 5A1955Z Respiratory Ventilation, Greater than 96 Consecutive Hours (ICD-10-PCS; 2020-04-05)
PROC: 0BH17EZ Insertion of Endotracheal Airway into Trachea, Via Natural or Artificial Opening (ICD-10-PCS; 2020-04-05)
PROC: 5A09357 Assistance with Respiratory Ventilation, Less than 24 Consecutive Hours, Continuous Positive Airway Pressure (ICD-10-PCS; principal; 2020-04-15)
PROC: 5A09357 Assistance with Respiratory Ventilation, Less than 24 Consecutive Hours, Continuous Positive Airway Pressure (ICD-10-PCS; 2020-04-16)
PROC: 5A09357 Assistance with Respiratory Ventilation, Less than 24 Consecutive Hours, Continuous Positive Airway Pressure (ICD-10-PCS; 2020-04-17)
PROC: 5A09357 Assistance with Respiratory Ventilation, Less than 24 Consecutive Hours, Continuous Positive Airway Pressure (ICD-10-PCS; 2020-04-19)
DX: U07.1 COVID-19 (principal); J96.01 Acute respiratory failure with hypoxia; J12.82 Pneumonia due to coronavirus disease 2019; I50.33 Acute on chronic diastolic (congestive) heart failure; G93.41 Metabolic encephalopathy; E87.1 Hypo-osmolality and hyponatremia; E87.0 Hyperosmolality and hypernatremia; E23.0 Hypopituitarism; D68.59 Other primary thrombophilia; Z99.11 Dependence on respirator [ventilator] status; R53.82 Chronic fatigue, unspecified; I11.0 Hypertensive heart disease with heart failure; G47.33 Obstructive sleep apnea (adult) (pediatric); E88.09 Other disorders of plasma-protein metabolism, not elsewhere classified; E83.51 Hypocalcemia; E78.5 Hyperlipidemia, unspecified; E66.01 Morbid (severe) obesity due to excess calories; D69.6 Thrombocytopenia, unspecified; I48.91 Unspecified atrial fibrillation; Z83.2 Family history of diseases of the blood and blood-forming organs and certain disorders involving the immune mechanism; Z82.49 Family history of ischemic heart disease and other diseases of the circulatory system; Z90.5 Acquired absence of kidney; Z83.3 Family history of diabetes mellitus; Z79.899 Other long term (current) drug therapy
CPT/HCPCS: 36415; 36600; 71045; 74018; 80048; 80053; 81003; 82247; 82550; 82728; 82803; 82962; 83036; 83605; 83615; 83735; 83880; 84145; 84478; 85025; 85379; 85384; 85651; 86140; 86850; 86900; 87040; 87070; 87081; 87086; 87205; 93005; 94002; 94003; 94150; 94660; 96365; 96375; 99291; G0378; J0456; J0696; J1071; J1100; J1650; J1940; J2185; J2405; J2704; J3010; J3480; J1120; J1720; J1815; J7040; J7050; P9017

== ENCOUNTER 2020-04-28 18:01 | Inpatient (IN) | payer OTHER ==
[~2020-04-28] VITALS: Ht 182.9 cm; Wt 126.2 kg
[~2020-04-28 18:01] MED LIST changes: +BUDE90AE INH
[2020-04-28] MEDS ORDERED: LORazepam 2 MG/ML, 1ML ONE ×2 (18:13→22:02)
[2020-04-28] MEDS ORDERED: LORazepam 2 MG/ML, 1ML IVPush ONE ×2 (18:30→22:30)
[2020-04-28] MEDS ORDERED: SODIUM CHLORIDE FLUSH 10ML SYR IVF ONE (18:30)
[2020-04-28] MEDS ORDERED: ACETAMINOPHEN 650 MG SUPP PR PRN (19:00)
[2020-04-28 19:04] LABS: ALANINE AMINOTRANSFERASE 50 U/L (12-78); ALBUMIN 3.1 g/dL (3.4-5.0); ANION GAP 8 mmol/L (5-15); CALCIUM 8.8 mg/dL (8.5-10.1); CHLORIDE 108 mmol/L (98-107); CREATININE 0.95 mg/dL (0.7-1.3); PROTHROMBIN TIME 10.7 Seconds (9.6-11.5)
[2020-04-28 19:08] LABS: ALKALINE PHOSPHATASE 89 U/L (45-117); BILIRUBIN,TOTAL 0.5 mg/dL (0.2-1.0); TOTAL PROTEIN 7.9 g/dL (6.4-8.2)
[2020-04-28 19:13] LABS: MEAN CORPUSCULAR HEMOGLOBIN 30.8 pg (27.5-34.5); MEAN CORPUSCULAR HGB CONC 32.9 g/dL (33.2-36.2); MEAN PLATELET VOLUME 8.5 fL (7.4-10.4); PLATELET COUNT 165 x10^3/uL (130-400); RED BLOOD COUNT 5.53 x10^6/uL (4.38-5.82); RED CELL DISTRIBUTION WIDTH 17.9 % (9.4-14.8)
--- NOTE | 2020-04-28 19:28 | NUR ---
1ST CONTACT C PT. RESTING ON CART C CPAP IN PLACE. PT C/O FEELING HOT, DENIES ANY PAIN OR N/V. TYL GIVEN PER MAR & RECTAL PROB PLACED. PER FAMILY, PT WAS ADMITTED FOR ~10DAYS (IN ICU C INTUBATION), HAS BEEN HOME ABOUT 10DAYS, DC HOME C BIPAP. TODAY HE STARTED FEELING CLAMMY & ANXIOUS & SOB. PT LUNGS DIMINISHED IN B/L LOWER LOBES. TACHY AT 123, GIVEN ATIVAN BY PRIOR RN C MILD RELIEF. PT WAS ALSO GIVEN FENTANYL BY EMS EN ROUTE. PT ON CPAP @ 15/80% PT HAS (2) PIV IN PLACE. 22G TO R WRIST, ESTB BY EMS, FLUSHES EASILY. 18G TO L FA, PLACED BY US, FLUSHES EASILY. PTS TOES [place]/PURPLE. DENIES ANY DM, BUT STATES THERE IS A FORM OF NEUROPOTHY FROM UNK CAUSES. NO CHANGE IN COLOR PER . PT USING URINAL C WIFES ASSISTANCE. [place]. USES WALKER AT HIME, HOWEVER TODAY FEELING VERY WEAK & NEEDED THE W/C. AWARE OF ELEVATED TROP.
--- NOTE | 2020-04-28 19:43 | NUR ---
PT GIVE ICE CHIPS, TOLERATING WELL. AWARE OF PLAN FOR CT.
[2020-04-28 19:48] LABS: MICROSCOPIC AUTO
[2020-04-28 19:49] LABS: MD YES
[2020-04-28] MEDS ORDERED: MEROPENEM 1 GM in SODIUM CHLORIDE 0.9% 100 ML IV ONE (20:00)
[2020-04-28] MEDS ORDERED: SODIUM CHLORIDE 0.9%, 500ML IVBOLUS ONE ×2 (20:00→22:30)
[2020-04-28 20:01] LABS: EOS#(MANUAL) 0.18 x10^3/uL (0.0-0.4); EOS% (MANUAL) 1 % (1-7); LYMPH#(MANUAL) 1.58 x10^3/uL (1-3.4); LYMPHS% (MANUAL) 9 % (22-44); MONOS#(MANUAL) 1.41 x10^3/uL (0.3-2.7); MONOS% (MANUAL) 8 % (2-9); SEG#(MANUAL) 14.43 x10^3/uL (1.8-6.8); SEGS% (MANUAL) 82 % (42-75)
[2020-04-28 20:02] LABS: <PLATELET ESTIMATE> ADEQUATE; <PLT MORPHOLOGY> NORMAL PLT MORPH; ANISOCYTOSIS 1+; POLYCHROMASIA 1+
--- NOTE | 2020-04-28 20:43 | NUR ---
PT SWICHTED OVER TO OXY MASK ~10 MIN AGO. TOLERATING WELL. SPO2 REMAINS >92%. SPEAKING IN FULL SENTANCES. PT TO CT.
--- NOTE | 2020-04-28 21:05 | NUR ---
PT BACK FROM CT. REMAINS ON OXY MASK. TOLERATING WELL. SPEAKING IN FULL SENTANCES. WILL CTM.
[2020-04-28] MEDS ORDERED: OMNIPAQUE 350 MG/ML, 100ML BOTTLE ONE (21:09)
[2020-04-28] MEDS ORDERED: HEPARIN 25,000 UNITS/250ML PMX 250 ML ONE (21:49)
[2020-04-28] MEDS ORDERED: HEPARIN 5,000 UNITS/ML, 1ML ONE (21:49)
[2020-04-28] MEDS: HEPARIN 25,000 UNITS/250ML PMX 250 ML IV PRN ×2 (21:59→23:32)
[2020-04-28] MEDS ORDERED: HEPARIN 5,000 UNITS/ML, 1ML IV PRN (22:00)
[2020-04-28] MEDS ORDERED: HEPARIN 5,000 UNITS/ML, 1ML IV ONE (22:00)
--- NOTE | 2020-04-28 22:04 | NUR ---
PT PLACED BACK ON CPAP. PT FEELING ANXIOUS, VO FOR ATIVAN. PT & FAMILY AGREES FOR PLAN OF INTUBATION IF PTS STAUTUS DECREASES. AWRAE OF PLAN FOR ICU. STARTED ON HEP GTT, INFUSING WELL ON PUMP. WILL CTM.
[2020-04-28] MEDS ORDERED: ASPIRIN 81 MG TABLET CHEW ONE (22:23)
[2020-04-28] MEDS ORDERED: ASPIRIN 81 MG TABLET EC PO ONE (22:30)
[2020-04-28] MEDS ORDERED: FUROSEMIDE 40 MG/4 ML IV ONE (23:30)
[2020-04-28] MEDS: MEROPENEM 1 GM in SODIUM CHLORIDE 0.9% 100 ML IV SCH (23:32)
[2020-04-28] MEDS ORDERED: FUROSEMIDE 40 MG/4 ML ONE (23:33)
[2020-04-29] MEDS ORDERED: BISACODYL 10 MG SUPP PR PRN
[2020-04-29] MEDS ORDERED: hydrALAzine 20 MG/ML, 1ML IVPush PRN
[2020-04-29] MEDS ORDERED: OXYcodone IR 5MG TABLET PO PRN
[2020-04-29] MEDS ORDERED: POLYETHYLENE GLYCOL 17 GM PACKET PO PRN
[2020-04-29] MEDS ORDERED: LORazepam 2 MG/ML, 1ML IVPush ONE ×2
[2020-04-29] MEDS ORDERED: ONDANSETRON 2MG/ML, 2ML IVPush PRN
[2020-04-29] MEDS ORDERED: ONDANSETRON ODT 4 MG PO PRN
[2020-04-29] MEDS ORDERED: PROMETHAZINE 25 MG/ML, 1ML IM PRN
[2020-04-29] MEDS ORDERED: morphine SULFATE 10 MG/ML, 1ML IVPush PRN
[2020-04-29] MEDS ORDERED: ALBUTEROL SULFATE 2.5 MG/3 ML NPPB PRN (01:00)
[2020-04-29] MEDS: HEPARIN GTT MC SCH ×3 (01:30→03:30)
[2020-04-29 04:18] LABS: BASOPHILS % (AUTO) 0 % (0-1); EOSINOPHILS % (AUTO) 1 % (1-7); LYMPHOCYTES % (AUTO) 16 % (22-44); MEAN CORPUSCULAR HEMOGLOBIN 30.8 pg (27.5-34.5); MEAN CORPUSCULAR HGB CONC 33.1 g/dL (33.2-36.2); MEAN PLATELET VOLUME 8.5 fL (7.4-10.4); MONOCYTES % (AUTO) 11 % (2-9); NEUTROPHILS % (AUTO) 72 % (42-75); PLATELET COUNT 124 x10^3/uL (130-400); RED CELL DISTRIBUTION WIDTH 18.1 % (9.4-14.8)
[2020-04-29 04:20] LABS: MD NO
[2020-04-29] MEDS ORDERED: HEPARIN 25,000 UNITS/250ML PMX 250 ML IV PRN (04:30)
[2020-04-29] MEDS ORDERED: HEPARIN 5,000 UNITS/ML, 1ML IV PRN (04:30)
[2020-04-29 04:31] LABS: ALBUMIN 2.6 g/dL (3.4-5.0); ANION GAP 6 mmol/L (5-15); CALCIUM 8.3 mg/dL (8.5-10.1); CHLORIDE 109 mmol/L (98-107)
[2020-04-29 04:39] LABS: ALANINE AMINOTRANSFERASE 40 U/L (12-78); ALKALINE PHOSPHATASE 74 U/L (45-117); BILIRUBIN,TOTAL 0.6 mg/dL (0.2-1.0); CHOL/HDL RATIO 3.4; CHOLESTEROL, TOTAL 152 mg/dL (140-239); CREATININE 0.85 mg/dL (0.7-1.3); HDL CHOL % 30 % (26-37); HDL CHOLESTEROL (DIRECT) 45 mg/dL (40-60); LDL CHOLESTEROL,CALCULATED 85 mg/dL (54-169); LDL/HDL RATIO 1.9 (0.5-3.0); TOTAL PROTEIN 6.9 g/dL (6.4-8.2); TRIGLYCERIDES 112 mg/dL (50-200); VLDL CHOLESTEROL 22 mg/dL (0-25)
[2020-04-29] MEDS ORDERED: ALTEPLASE 10 MG in SODIUM CHLORIDE 0.9% 240 ML IV ONE (05:30)
[2020-04-29] MEDS ORDERED: MIDAZOLAM 1 MG/ML, 5ML ONE (06:40)
[2020-04-29] MEDS ORDERED: LIDOCAINE 1%, 20ML ONE (06:40)
[2020-04-29] MEDS ORDERED: FENTANYL PF 100 MCG/2ML ONE (06:40)
[2020-04-29] MEDS ORDERED: MAGNESIUM SULFATE PMX 2GM/50ML 50 ML IV ONE (07:30)
[2020-04-29] MEDS ORDERED: SODIUM CHLORIDE 0.9% 1,000 ML IV SCH (08:00)
[2020-04-29] MEDS ORDERED: SODIUM CHLORIDE FLUSH 3ML SYRINGE IVF PRN (08:00)
[2020-04-29] MEDS ORDERED: SODIUM CHLORIDE 0.9% IV SCH (09:00)
[2020-04-29] MEDS ORDERED: HEPARIN IV SCH (09:00)
[2020-04-29 09:02] LABS: BASOPHILS % (AUTO) 1 % (0-1); EOSINOPHILS % (AUTO) 1 % (1-7); LYMPHOCYTES % (AUTO) 16 % (22-44); MEAN PLATELET VOLUME 8.6 fL (7.4-10.4); MONOCYTES % (AUTO) 12 % (2-9); NEUTROPHILS % (AUTO) 71 % (42-75); PLATELET COUNT 131 x10^3/uL (130-400); RED BLOOD COUNT 4.87 x10^6/uL (4.38-5.82); RED CELL DISTRIBUTION WIDTH 18.2 % (9.4-14.8)
[2020-04-29 09:23] LABS: FIBRINOGEN > 713 mg/dL (200-340)
[2020-04-29 09:52] LABS: MD SCAN
[2020-04-29] MEDS: RIVAROXABAN 15 MG TABLET PO SCH ×2 (10:29→21:12)
[2020-04-29] MEDS: HYDROCORTISONE 20 MG TABLET PO SCH ×2 (10:31→21:11)
[2020-04-29] MEDS: FUROSEMIDE 40 MG/4 ML IV SCH (10:31)
[2020-04-29] MEDS: OMEPRAZOLE 20 MG CAPSULE.DR PO SCH (10:31)
[2020-04-29] MEDS: LEVOTHYROXINE 112 MCG TABLET PO SCH (10:31)
[2020-04-29] MEDS: SERTRALINE 100MG TABLET PO SCH (10:33)
[2020-04-29] MEDS: BUDESONIDE 0.5 MG/2 ML INHA NPPB SCH ×2 (11:30→21:00)
[2020-04-29] MEDS: MEROPENEM 1 GM in SODIUM CHLORIDE 0.9% 100 ML IV SCH ×2 (13:02→21:00)
[2020-04-29 14:33] LABS: BASOPHILS % (AUTO) 1 % (0-1); EOSINOPHILS % (AUTO) 1 % (1-7); LYMPHOCYTES % (AUTO) 10 % (22-44); MD NO; MEAN CORPUSCULAR HGB CONC 33.5 g/dL (33.2-36.2); MEAN PLATELET VOLUME 8.4 fL (7.4-10.4); MONOCYTES % (AUTO) 9 % (2-9); NEUTROPHILS % (AUTO) 81 % (42-75); PLATELET COUNT 130 x10^3/uL (130-400); RED BLOOD COUNT 5.16 x10^6/uL (4.38-5.82); RED CELL DISTRIBUTION WIDTH 17.8 % (9.4-14.8)
[2020-04-29 15:04] LABS: FIBRINOGEN > 713 mg/dL (200-340)
[2020-04-29] MEDS: GUAIFENESIN/COD200MG-20MG/10ML LIQUID PO PRN (16:53)
[2020-04-29] MEDS ORDERED: SIMVASTATIN 20 MG TABLET ONE (20:22)
[2020-04-29] MEDS: SIMVASTATIN 40 MG TABLET PO SCH (21:00)
[2020-04-29] MEDS: GABAPENTIN 300 MG CAPSULE PO SCH (21:12)
[2020-04-29 21:31] LABS: BASOPHILS % (AUTO) 0 % (0-1); EOSINOPHILS % (AUTO) 1 % (1-7); LYMPHOCYTES % (AUTO) 15 % (22-44); MD NO; MEAN CORPUSCULAR HEMOGLOBIN 31.2 pg (27.5-34.5); MEAN CORPUSCULAR HGB CONC 33.2 g/dL (33.2-36.2); MEAN PLATELET VOLUME 8.4 fL (7.4-10.4); MONOCYTES % (AUTO) 11 % (2-9); NEUTROPHILS % (AUTO) 72 % (42-75); PLATELET COUNT 141 x10^3/uL (130-400); RED BLOOD COUNT 5.01 x10^6/uL (4.38-5.82); RED CELL DISTRIBUTION WIDTH 18.3 % (9.4-14.8)
[2020-04-29 21:47] LABS: FIBRINOGEN > 713 mg/dL (200-340)
[2020-04-30 03:39] LABS: BASOPHILS % (AUTO) 1 % (0-1); EOSINOPHILS % (AUTO) 1 % (1-7); LYMPHOCYTES % (AUTO) 12 % (22-44); MEAN CORPUSCULAR HEMOGLOBIN 31.3 pg (27.5-34.5); MEAN CORPUSCULAR HGB CONC 33.4 g/dL (33.2-36.2); MEAN PLATELET VOLUME 8.3 fL (7.4-10.4); MONOCYTES % (AUTO) 10 % (2-9); NEUTROPHILS % (AUTO) 77 % (42-75); PLATELET COUNT 132 x10^3/uL (130-400); RED BLOOD COUNT 4.73 x10^6/uL (4.38-5.82); RED CELL DISTRIBUTION WIDTH 17.7 % (9.4-14.8)
[2020-04-30 03:40] LABS: MD NO
[2020-04-30 03:50] LABS: ANION GAP 6 mmol/L (5-15); CALCIUM 8.3 mg/dL (8.5-10.1); CHLORIDE 105 mmol/L (98-107); CREATININE 0.97 mg/dL (0.7-1.3)
[2020-04-30 03:55] LABS: INTERNATIONAL NORMALIZED RATIO 1.25 (0.93-1.1); PROTHROMBIN TIME 13.3 Seconds (9.6-11.5)
[2020-04-30 03:57] LABS: FIBRINOGEN > 713 mg/dL (200-340)
[2020-04-30] MEDS: MEROPENEM 1 GM in SODIUM CHLORIDE 0.9% 100 ML IV SCH ×4 (04:33→21:28)
[2020-04-30] MEDS: HYDROCORTISONE 20 MG TABLET PO SCH ×2 (09:00→20:23)
[2020-04-30] MEDS: DOCUSATE 100 MG CAPSULE PO PRN ×2 (09:00→20:22)
[2020-04-30] MEDS: RIVAROXABAN 15 MG TABLET PO SCH ×2 (09:00→20:24)
[2020-04-30] MEDS: LEVOTHYROXINE 112 MCG TABLET PO SCH (09:00)
[2020-04-30] MEDS: SERTRALINE 100MG TABLET PO SCH (09:00)
[2020-04-30] MEDS: OMEPRAZOLE 20 MG CAPSULE.DR PO SCH (09:00)
[2020-04-30] MEDS: BENZONATATE 100 MG CAPSULE PO PRN ×2 (09:00→16:49)
[2020-04-30] MEDS: FUROSEMIDE 40 MG/4 ML IV SCH (09:01)
[2020-04-30] MEDS: GUAIFENESIN/COD200MG-20MG/10ML LIQUID PO PRN ×2 (09:16→20:22)
[2020-04-30] MEDS: FLUTICASONE/VILANTEROL 200-25MCG/INH INH SCH (15:24)
[2020-04-30 17:31] VITALS: BP 96/68
[2020-04-30 18:38] VITALS: BP 108/73
[2020-04-30] MEDS ORDERED: HYDROCORTISONE 10 MG TABLET ONE (20:13)
[2020-04-30] MEDS: SIMVASTATIN 40 MG TABLET PO SCH (20:22)
[2020-04-30] MEDS: LIDODERM 5% PATCH TD SCH (20:22)
[2020-04-30] MEDS: GABAPENTIN 300 MG CAPSULE PO SCH (20:24)
[2020-05-01 02:05] VITALS: BP 140/91
[2020-05-01] MEDS: MEROPENEM 1 GM in SODIUM CHLORIDE 0.9% 100 ML IV SCH ×3 (05:13→21:19)
[2020-05-01 05:34] LABS: BASOPHILS % (AUTO) 1 % (0-1); EOSINOPHILS % (AUTO) 2 % (1-7); LYMPHOCYTES % (AUTO) 17 % (22-44); MEAN CORPUSCULAR HEMOGLOBIN 30.5 pg (27.5-34.5); MEAN CORPUSCULAR HGB CONC 32.4 g/dL (33.2-36.2); MEAN PLATELET VOLUME 8.5 fL (7.4-10.4); MONOCYTES % (AUTO) 10 % (2-9); NEUTROPHILS % (AUTO) 70 % (42-75); PLATELET COUNT 149 x10^3/uL (130-400); RED BLOOD COUNT 4.62 x10^6/uL (4.38-5.82); RED CELL DISTRIBUTION WIDTH 17.5 % (9.4-14.8)
[2020-05-01 05:36] LABS: MD NO
[2020-05-01 05:43] LABS: ANION GAP 7 mmol/L (5-15); CALCIUM 8.6 mg/dL (8.5-10.1); CHLORIDE 105 mmol/L (98-107)
[2020-05-01 05:47] LABS: CREATININE 0.83 mg/dL (0.7-1.3)
[2020-05-01] MEDS: LIDODERM REMOVE PATCH NOTE XX SCH (07:33)
[2020-05-01] MEDS: LEVOTHYROXINE 112 MCG TABLET PO SCH (08:10)
[2020-05-01] MEDS: HYDROCORTISONE 20 MG TABLET PO SCH ×2 (08:11→20:29)
[2020-05-01] MEDS: BENZONATATE 100 MG CAPSULE PO PRN (08:11)
[2020-05-01] MEDS: OMEPRAZOLE 20 MG CAPSULE.DR PO SCH (08:11)
[2020-05-01] MEDS: FUROSEMIDE 40 MG/4 ML IV SCH (08:18)
[2020-05-01] MEDS: SERTRALINE 100MG TABLET PO SCH (08:20)
[2020-05-01] MEDS: RIVAROXABAN 15 MG TABLET PO SCH ×2 (08:23→20:29)
[2020-05-01 09:01] VITALS: BP 127/85
[2020-05-01] MEDS: FLUTICASONE/VILANTEROL 200-25MCG/INH INH SCH (10:30)
[2020-05-01] MEDS: GUAIFENESIN/COD200MG-20MG/10ML LIQUID PO PRN ×2 (12:22→20:29)
[2020-05-01 12:49] VITALS: BP 110/74
[2020-05-01] MEDS: ACETAMINOPHEN 325 MG TABLET PO PRN (16:12)
[2020-05-01 20:26] VITALS: BP 120/78
[2020-05-01] MEDS: LIDODERM 5% PATCH TD SCH (20:29)
[2020-05-01] MEDS: SIMVASTATIN 40 MG TABLET PO SCH (20:29)
[2020-05-01] MEDS: DOCUSATE 100 MG CAPSULE PO PRN (20:29)
[2020-05-01] MEDS: GABAPENTIN 300 MG CAPSULE PO SCH (20:30)
[2020-05-01 23:45] LABS: OCCULT BLOOD NEGATIVE (NEGATIVE)
[2020-05-02 01:18] VITALS: BP 134/92
[2020-05-02 05:14] LABS: BASOPHILS % (AUTO) 1 % (0-1); EOSINOPHILS % (AUTO) 2 % (1-7); LYMPHOCYTES % (AUTO) 18 % (22-44); MEAN CORPUSCULAR HEMOGLOBIN 31.3 pg (27.5-34.5); MEAN CORPUSCULAR HGB CONC 33.4 g/dL (33.2-36.2); MEAN PLATELET VOLUME 8.4 fL (7.4-10.4); MONOCYTES % (AUTO) 7 % (2-9); NEUTROPHILS % (AUTO) 73 % (42-75); PLATELET COUNT 173 x10^3/uL (130-400); RED BLOOD COUNT 4.55 x10^6/uL (4.38-5.82); RED CELL DISTRIBUTION WIDTH 17.6 % (9.4-14.8)
[2020-05-02 05:17] LABS: ANION GAP 7 mmol/L (5-15); CALCIUM 8.2 mg/dL (8.5-10.1); CHLORIDE 106 mmol/L (98-107); CREATININE 0.77 mg/dL (0.7-1.3)
[2020-05-02 05:19] LABS: MD NO
[2020-05-02] MEDS: MEROPENEM 1 GM in SODIUM CHLORIDE 0.9% 100 ML IV SCH ×3 (05:21→20:49)
[2020-05-02 08:21] VITALS: BP 105/69
[2020-05-02] MEDS: RIVAROXABAN 15 MG TABLET PO SCH ×2 (08:22→20:44)
[2020-05-02] MEDS: FLUTICASONE/VILANTEROL 200-25MCG/INH INH SCH (08:23)
[2020-05-02] MEDS: LEVOTHYROXINE 112 MCG TABLET PO SCH (08:23)
[2020-05-02] MEDS: HYDROCORTISONE 20 MG TABLET PO SCH ×2 (08:23→20:43)
[2020-05-02] MEDS: SERTRALINE 100MG TABLET PO SCH (08:23)
[2020-05-02] MEDS: OMEPRAZOLE 20 MG CAPSULE.DR PO SCH (08:23)
[2020-05-02] MEDS: FUROSEMIDE 40 MG/4 ML IV SCH (08:24)
[2020-05-02] MEDS: LIDODERM REMOVE PATCH NOTE XX SCH (08:33)
[2020-05-02 14:00] VITALS: BP 113/75
[2020-05-02 20:32] VITALS: BP 116/74
[2020-05-02] MEDS: GABAPENTIN 300 MG CAPSULE PO SCH (20:43)
[2020-05-02] MEDS: SIMVASTATIN 40 MG TABLET PO SCH (20:43)
[2020-05-02] MEDS: LIDODERM 5% PATCH TD SCH (20:44)
[2020-05-02] MEDS: ACETAMINOPHEN 325 MG TABLET PO PRN (20:49)
[2020-05-03 03:35] VITALS: BP 134/85
[2020-05-03 05:40] LABS: BASOPHILS % (AUTO) 1 % (0-1); EOSINOPHILS % (AUTO) 2 % (1-7); LYMPHOCYTES % (AUTO) 21 % (22-44); MEAN CORPUSCULAR HEMOGLOBIN 31.2 pg (27.5-34.5); MEAN CORPUSCULAR HGB CONC 33.6 g/dL (33.2-36.2); MEAN PLATELET VOLUME 8.3 fL (7.4-10.4); MONOCYTES % (AUTO) 8 % (2-9); NEUTROPHILS % (AUTO) 68 % (42-75); PLATELET COUNT 194 x10^3/uL (130-400); RED BLOOD COUNT 4.73 x10^6/uL (4.38-5.82); RED CELL DISTRIBUTION WIDTH 17.2 % (9.4-14.8)
[2020-05-03 05:43] LABS: ANION GAP 4 mmol/L (5-15); CALCIUM 8.9 mg/dL (8.5-10.1); CHLORIDE 107 mmol/L (98-107); CREATININE 0.78 mg/dL (0.7-1.3)
[2020-05-03 05:51] LABS: MD NO
[2020-05-03] MEDS: MEROPENEM 1 GM in SODIUM CHLORIDE 0.9% 100 ML IV SCH ×3 (06:15→22:34)
[2020-05-03 06:59] VITALS: BP 117/77
[2020-05-03] MEDS: FLUTICASONE/VILANTEROL 200-25MCG/INH INH SCH (07:44)
[2020-05-03] MEDS: OMEPRAZOLE 20 MG CAPSULE.DR PO SCH (08:37)
[2020-05-03] MEDS: SERTRALINE 100MG TABLET PO SCH (08:37)
[2020-05-03] MEDS: RIVAROXABAN 15 MG TABLET PO SCH ×2 (08:37→20:41)
[2020-05-03] MEDS: LEVOTHYROXINE 112 MCG TABLET PO SCH (08:37)
[2020-05-03] MEDS: HYDROCORTISONE 20 MG TABLET PO SCH ×2 (08:37→20:41)
[2020-05-03] MEDS: FUROSEMIDE 40 MG/4 ML IV SCH (08:38)
[2020-05-03] MEDS: GUAIFENESIN/COD200MG-20MG/10ML LIQUID PO PRN ×2 (08:47→20:46)
[2020-05-03] MEDS: DOCUSATE 100 MG CAPSULE PO PRN (08:47)
[2020-05-03] MEDS ORDERED: TESTOSTERONE CYPIONATE 200 MG/ML IM ONE (09:00)
[2020-05-03] MEDS: LIDODERM REMOVE PATCH NOTE XX SCH (09:52)
[2020-05-03] MEDS: BENZONATATE 100 MG CAPSULE PO PRN ×2 (12:49→20:46)
[2020-05-03 13:56] VITALS: BP 126/86
[2020-05-03] MEDS: SIMVASTATIN 40 MG TABLET PO SCH (20:41)
[2020-05-03] MEDS: GABAPENTIN 300 MG CAPSULE PO SCH (20:41)
[2020-05-03] MEDS: LIDODERM 5% PATCH TD SCH (20:41)
[2020-05-03] MEDS: ACETAMINOPHEN 325 MG TABLET PO PRN (20:46)
[2020-05-03 20:58] VITALS: BP 131/80
[2020-05-04 02:40] VITALS: BP 133/90
[2020-05-04] MEDS: MEROPENEM 1 GM in SODIUM CHLORIDE 0.9% 100 ML IV SCH (07:00)
[2020-05-04] MEDS: FLUTICASONE/VILANTEROL 200-25MCG/INH INH SCH (07:05)
[2020-05-04 07:26] VITALS: BP 111/75
[2020-05-04 07:41] LABS: ANION GAP 4 mmol/L (5-15); CALCIUM 9.1 mg/dL (8.5-10.1); CHLORIDE 105 mmol/L (98-107); CREATININE 0.81 mg/dL (0.7-1.3)
[2020-05-04] MEDS: OMEPRAZOLE 20 MG CAPSULE.DR PO SCH (08:49)
[2020-05-04] MEDS: LEVOTHYROXINE 112 MCG TABLET PO SCH (08:51)
[2020-05-04] MEDS: RIVAROXABAN 15 MG TABLET PO SCH ×2 (08:51→21:14)
[2020-05-04] MEDS: HYDROCORTISONE 20 MG TABLET PO SCH ×2 (08:52→21:14)
[2020-05-04 08:55] VITALS: BP 109/76
[2020-05-04] MEDS: SERTRALINE 100MG TABLET PO SCH (09:00)
[2020-05-04] MEDS: FUROSEMIDE 40 MG/4 ML IV SCH (09:01)
[2020-05-04] MEDS: GUAIFENESIN/COD200MG-20MG/10ML LIQUID PO PRN (09:03)
[2020-05-04] MEDS: ACETAMINOPHEN 325 MG TABLET PO PRN (09:03)
[2020-05-04] MEDS: LIDODERM REMOVE PATCH NOTE XX SCH (09:12)
[2020-05-04 14:46] VITALS: BP 131/81
[2020-05-04] MEDS: BENZONATATE 100 MG CAPSULE PO PRN (14:53)
[2020-05-04] MEDS ORDERED: MEROPENEM 1 GM in SODIUM CHLORIDE 0.9% 100 ML IV SCH (15:00)
[2020-05-04 19:33] VITALS: BP 119/76
[2020-05-04] MEDS: GABAPENTIN 300 MG CAPSULE PO SCH (21:00)
[2020-05-04 21:03] VITALS: BP 113/76
[2020-05-04] MEDS: LIDODERM 5% PATCH TD SCH (21:11)
[2020-05-04] MEDS: SIMVASTATIN 40 MG TABLET PO SCH (21:14)
[2020-05-04] MEDS ORDERED: NORT25CA2 PO (21:33)
[2020-05-04] MEDS: NORTRIPTYLINE 25 MG CAPSULE PO SCH (22:40)
[2020-05-05 01:35] VITALS: BP 131/87
[2020-05-05 05:19] LABS: ANION GAP 6 mmol/L (5-15); CALCIUM 8.7 mg/dL (8.5-10.1); CHLORIDE 107 mmol/L (98-107); CREATININE 0.77 mg/dL (0.7-1.3)
[2020-05-05] MEDS: FLUTICASONE/VILANTEROL 200-25MCG/INH INH SCH (08:30)
[2020-05-05] MEDS: LEVOTHYROXINE 112 MCG TABLET PO SCH (08:45)
[2020-05-05] MEDS: OMEPRAZOLE 20 MG CAPSULE.DR PO SCH (08:45)
[2020-05-05] MEDS: HYDROCORTISONE 20 MG TABLET PO SCH ×2 (08:46→20:15)
[2020-05-05] MEDS: FUROSEMIDE 40 MG TABLET PO SCH (08:46)
[2020-05-05] MEDS: RIVAROXABAN 15 MG TABLET PO SCH ×2 (08:46→20:14)
[2020-05-05] MEDS: SERTRALINE 100MG TABLET PO SCH (08:46)
[2020-05-05] MEDS: LIDODERM REMOVE PATCH NOTE XX SCH (08:46)
[2020-05-05] MEDS: GUAIFENESIN/COD200MG-20MG/10ML LIQUID PO PRN ×2 (08:48→14:34)
[2020-05-05 09:58] VITALS: BP 126/76
[2020-05-05 14:52] VITALS: BP 109/73
[2020-05-05 18:49] VITALS: BP 103/66
[2020-05-05] MEDS: LIDODERM 5% PATCH TD SCH (20:13)
[2020-05-05] MEDS: NORTRIPTYLINE 25 MG CAPSULE PO SCH (20:15)
[2020-05-05] MEDS: SIMVASTATIN 40 MG TABLET PO SCH (20:15)
[2020-05-05] MEDS: BENZONATATE 100 MG CAPSULE PO PRN (20:15)
[2020-05-05] MEDS: ACETAMINOPHEN 325 MG TABLET PO PRN (20:15)
[2020-05-06 02:00] VITALS: BP 128/83
[2020-05-06] MEDS: SERTRALINE 100MG TABLET PO SCH (08:28)
[2020-05-06] MEDS: FUROSEMIDE 40 MG TABLET PO SCH (08:28)
[2020-05-06] MEDS: RIVAROXABAN 15 MG TABLET PO SCH ×2 (08:28→21:01)
[2020-05-06] MEDS: BENZONATATE 100 MG CAPSULE PO PRN ×2 (08:28→21:01)
[2020-05-06] MEDS: OMEPRAZOLE 20 MG CAPSULE.DR PO SCH (08:28)
[2020-05-06] MEDS: LEVOTHYROXINE 112 MCG TABLET PO SCH (08:29)
[2020-05-06] MEDS: HYDROCORTISONE 20 MG TABLET PO SCH ×2 (08:29→21:01)
[2020-05-06] MEDS: LIDODERM REMOVE PATCH NOTE XX SCH (08:29)
[2020-05-06 09:06] VITALS: BP 111/74
[2020-05-06] MEDS: FLUTICASONE/VILANTEROL 200-25MCG/INH INH SCH (09:17)
[2020-05-06 15:39] VITALS: BP 109/65
[2020-05-06 18:52] VITALS: BP 113/75
[2020-05-06] MEDS: ACETAMINOPHEN 325 MG TABLET PO PRN (21:00)
[2020-05-06] MEDS: NORTRIPTYLINE 25 MG CAPSULE PO SCH (21:01)
[2020-05-06] MEDS: SIMVASTATIN 40 MG TABLET PO SCH (21:01)
[2020-05-06] MEDS: BUSPIRONE 5 MG TABLET PO SCH (21:02)
[2020-05-06] MEDS: LIDODERM 5% PATCH TD SCH (21:02)
[2020-05-07 02:00] VITALS: BP 130/86
[2020-05-07] MEDS: FLUTICASONE/VILANTEROL 200-25MCG/INH INH SCH (07:25)
[2020-05-07 08:00] VITALS: BP 126/63
[2020-05-07] MEDS: RIVAROXABAN 15 MG TABLET PO SCH (08:03)
[2020-05-07] MEDS: OMEPRAZOLE 20 MG CAPSULE.DR PO SCH (08:03)
[2020-05-07] MEDS: FUROSEMIDE 40 MG TABLET PO SCH (08:03)
[2020-05-07] MEDS: LEVOTHYROXINE 112 MCG TABLET PO SCH (08:03)
[2020-05-07] MEDS: BENZONATATE 100 MG CAPSULE PO PRN (08:03)
[2020-05-07] MEDS: LIDODERM REMOVE PATCH NOTE XX SCH (08:03)
[2020-05-07] MEDS: BUSPIRONE 5 MG TABLET PO SCH (08:03)
[2020-05-07] MEDS: HYDROCORTISONE 20 MG TABLET PO SCH (08:03)
[2020-05-07] MEDS: SERTRALINE 100MG TABLET PO SCH (08:04)
[2020-05-07] MEDS ORDERED: FURO40TA6 PO (10:01)
[2020-05-07] MEDS ORDERED: RIVA15TA PO (10:01)
[2020-05-07 10:15] VITALS: BP 131/76
[2020-05-07] MEDS ORDERED: ALPR0.25 PO (10:24)
[2020-05-07] MEDS ORDERED: Guaifenesin/Cod200mg-20MG/10ML PO ×2 (10:29→10:36)
[2020-05-07 14:00] VITALS: BP 108/78
== END 2020-05-07 14:51 | disposition home health service (06) | DRG 871 ==
LOC: ED 18:31 → EDIP 22:31 → ICU 04-29 01:02 → CCU 04-29 16:16 → 5SO 04-30 18:12
PROVIDERS: ADMIT Internal Medicine; ATTEND Hospitalist
PROC: 5A09357 Assistance with Respiratory Ventilation, Less than 24 Consecutive Hours, Continuous Positive Airway Pressure (ICD-10-PCS; 2020-04-28)
PROC: 02HR33Z Insertion of Infusion Device into Left Pulmonary Artery, Percutaneous Approach (ICD-10-PCS; principal; 2020-04-29)
PROC: 02HQ33Z Insertion of Infusion Device into Right Pulmonary Artery, Percutaneous Approach (ICD-10-PCS; 2020-04-29)
PROC: 3E05317 Introduction of Other Thrombolytic into Peripheral Artery, Percutaneous Approach (ICD-10-PCS; 2020-04-29)
PROC: 5A0935A Assistance with Respiratory Ventilation, Less than 24 Consecutive Hours, High Flow/Velocity Cannula (ICD-10-PCS; 2020-05-05)
DX: A41.89 Other specified sepsis (principal); I21.A1 Myocardial infarction type 2; I26.92 Saddle embolus of pulmonary artery without acute cor pulmonale; J96.21 Acute and chronic respiratory failure with hypoxia; E23.0 Hypopituitarism; E27.40 Unspecified adrenocortical insufficiency; I13.0 Hypertensive heart and chronic kidney disease with heart failure and stage 1 through stage 4 chronic kidney disease, or unspecified chronic kidney disease; I50.32 Chronic diastolic (congestive) heart failure; E03.9 Hypothyroidism, unspecified; E66.9 Obesity, unspecified; E78.5 Hyperlipidemia, unspecified; E88.09 Other disorders of plasma-protein metabolism, not elsewhere classified; F41.1 Generalized anxiety disorder; G47.33 Obstructive sleep apnea (adult) (pediatric); I48.91 Unspecified atrial fibrillation; N18.30 Chronic kidney disease, stage 3 unspecified; Z82.49 Family history of ischemic heart disease and other diseases of the circulatory system; Z83.2 Family history of diseases of the blood and blood-forming organs and certain disorders involving the immune mechanism; Z83.3 Family history of diabetes mellitus; Z86.711 Personal history of pulmonary embolism; Z86.718 Personal history of other venous thrombosis and embolism; Z87.891 Personal history of nicotine dependence; Z90.5 Acquired absence of kidney; Z88.0 Allergy status to penicillin; Z88.2 Allergy status to sulfonamides; Z88.1 Allergy status to other antibiotic agents; Z88.8 Allergy status to other drugs, medicaments and biological substances; Z68.37 Body mass index [BMI] 37.0-37.9, adult
CPT/HCPCS: 36415; 36600; 37211; 84145; 96361; 96374; 99291; 99292; J3490; J7626; 71045; 71275; 80048; 80053; 80061; 81001; 82272; 82803; 83036; 83605; 83735; 84100; 84402; 84403; 84443; 84484; 85025; 85384; 85520; 85610; 85730; 87040; 87081; 93005; 93306; 94640; 94660; 99156; 99157; C1769; C1894; G0378; J1071; J1644; J1940; J2185; J2250; J3010; Q9967; J2060; J3475; J7040

== ENCOUNTER → 2020-07-26 | Outpatient (CLI) | payer OTHER ==
[~2020-07-26] MED LIST changes: +ALPR0.25 PO; +FURO40TA6 PO; +Guaifenesin/Cod200mg-20MG/10ML PO; +NORT25CA2 PO; +RIVA15TA PO
[2020-07-26 08:47] LABS: BASOPHILS % (AUTO) 1 % (0-1); EOSINOPHILS % (AUTO) 1 % (1-7); LYMPHOCYTES % (AUTO) 27 % (22-44); MEAN CORPUSCULAR HEMOGLOBIN 28.7 pg (27.5-34.5); MEAN CORPUSCULAR HGB CONC 33.1 g/dL (33.2-36.2); MEAN PLATELET VOLUME 7.9 fL (7.4-10.4); MONOCYTES % (AUTO) 12 % (2-9); NEUTROPHILS % (AUTO) 59 % (42-75); PLATELET COUNT 240 x10^3/uL (130-400); RED BLOOD COUNT 5.72 x10^6/uL (4.38-5.82); RED CELL DISTRIBUTION WIDTH 16.2 % (9.4-14.8)
[2020-07-26 08:53] LABS: MD NO
[2020-07-26 08:57] LABS: ALANINE AMINOTRANSFERASE 29 U/L (12-78); ALBUMIN 3.7 g/dL (3.4-5.0); ANION GAP 4 mmol/L (5-15); CALCIUM 8.8 mg/dL (8.5-10.1); CHLORIDE 107 mmol/L (98-107); CHOLESTEROL, TOTAL 190 mg/dL (140-239); CREATININE 0.98 mg/dL (0.7-1.3)
[2020-07-26 08:59] LABS: ALKALINE PHOSPHATASE 69 U/L (45-117); BILIRUBIN,TOTAL 0.4 mg/dL (0.2-1.0); HDL CHOLESTEROL (DIRECT) 41 mg/dL (40-60); TOTAL PROTEIN 7.3 g/dL (6.4-8.2); TRIGLYCERIDES 237 mg/dL (50-200); VLDL CHOLESTEROL 47 mg/dL (0-25)
[2020-07-26 09:06] LABS: FREE T4 (FREE THYROXINE) 0.78 ng/dL (0.76-1.46)
[2020-07-26 10:36] LABS: CHOL/HDL RATIO 4.6; HDL CHOL % 22 % (26-37); LDL CHOLESTEROL,CALCULATED 102 mg/dL (54-169); LDL/HDL RATIO 2.5 (0.5-3.0)
== END | disposition home or self-care (01) ==
LOC: LAB 08:29
PROVIDERS: ATTEND Internal Medicine Cardiovascular Disease
DX: E78.2 Mixed hyperlipidemia (principal); E03.9 Hypothyroidism, unspecified; I26.99 Other pulmonary embolism without acute cor pulmonale; Z79.01 Long term (current) use of anticoagulants
CPT/HCPCS: 36415; 80053; 80061; 83036; 84439; 84443; 85025

== ENCOUNTER → 2020-07-30 | Outpatient (CLI) | payer OTHER | END | disposition home or self-care (01) | LOC: CFH 10:44 | PROVIDERS: ATTEND Nurse Practitioner Family | DX: U07.1 COVID-19 (principal); J92.9 Pleural plaque without asbestos; J84.10 Pulmonary fibrosis, unspecified; K80.20 Calculus of gallbladder without cholecystitis without obstruction; N62 Hypertrophy of breast; M40.294 Other kyphosis, thoracic region; K44.9 Diaphragmatic hernia without obstruction or gangrene | CPT/HCPCS: 71250 ==

== ENCOUNTER 2020-08-26 11:15 | Outpatient (CLI) | payer OTHER | END 2020-08-26 23:59 | disposition home or self-care (01) | LOC: CFH 11:15 | PROVIDERS: ATTEND Nurse Practitioner | DX: E23.0 Hypopituitarism (principal); T50.905A Adverse effect of unspecified drugs, medicaments and biological substances, initial encounter; E55.9 Vitamin D deficiency, unspecified; Y92.89 Other specified places as the place of occurrence of the external cause | CPT/HCPCS: 77080 ==

== ENCOUNTER → 2020-10-08 | Outpatient (CLI) | payer OTHER ==
[2020-10-08 09:20] LABS: FREE T4 (FREE THYROXINE) 0.77 ng/dL (0.76-1.46)
== END | disposition home or self-care (01) ==
LOC: LAB 08:39
PROVIDERS: ATTEND Nurse Practitioner
DX: E23.0 Hypopituitarism (principal); E55.9 Vitamin D deficiency, unspecified; T50.905A Adverse effect of unspecified drugs, medicaments and biological substances, initial encounter; X58.XXXA Exposure to other specified factors, initial encounter
CPT/HCPCS: 36415; 82306; 82533; 83001; 83002; 84146; 84153; 84305; 84403; 84439; 84443; G0103

== ENCOUNTER → 2020-10-28 | Outpatient (CLI) | payer OTHER | END | disposition home or self-care (01) | LOC: CVU 08:35 | PROVIDERS: ATTEND Internal Medicine Cardiovascular Disease | DX: I26.99 Other pulmonary embolism without acute cor pulmonale (principal) | CPT/HCPCS: 93306 ==

== ENCOUNTER 2020-11-16 08:39 | Outpatient (CLI) | payer OTHER ==
[2020-11-16 09:17] LABS: BASOPHILS % (AUTO) 1 % (0-1); EOSINOPHILS % (AUTO) 1 % (1-7); LYMPHOCYTES % (AUTO) 26 % (22-44); MEAN CORPUSCULAR HEMOGLOBIN 28.3 pg (27.5-34.5); MEAN CORPUSCULAR HGB CONC 32.7 g/dL (33.2-36.2); MEAN PLATELET VOLUME 8.2 fL (7.4-10.4); MONOCYTES % (AUTO) 10 % (2-9); NEUTROPHILS % (AUTO) 63 % (42-75); PLATELET COUNT 203 x10^3/uL (130-400); RED BLOOD COUNT 6.12 x10^6/uL (4.38-5.82)
[2020-11-16 09:29] LABS: ALANINE AMINOTRANSFERASE 40 U/L (12-78); ALBUMIN 3.8 g/dL (3.4-5.0); ANION GAP 4 mmol/L (5-15); CALCIUM 8.9 mg/dL (8.5-10.1); CHLORIDE 105 mmol/L (98-107)
[2020-11-16 09:40] LABS: ALKALINE PHOSPHATASE 83 U/L (45-117); BILIRUBIN,TOTAL 0.4 mg/dL (0.2-1.0); CREATININE 1.02 mg/dL (0.7-1.3); FREE T4 (FREE THYROXINE) 0.78 ng/dL (0.76-1.46); TOTAL PROTEIN 7.8 g/dL (6.4-8.2)
[2020-11-16 11:24] LABS: HCT (SEDRATE) 52.9 % (39.2-51.8)
[2020-11-16 13:42] LABS: ANA SCREEN NEGATIVE (Negative)
== END 2020-11-16 23:59 | disposition home or self-care (01) ==
LOC: LAB 08:39
PROVIDERS: ATTEND Psychiatry & Neurology Neurology
DX: G43.009 Migraine without aura, not intractable, without status migrainosus (principal); E05.00 Thyrotoxicosis with diffuse goiter without thyrotoxic crisis or storm; H25.13 Age-related nuclear cataract, bilateral
CPT/HCPCS: 36415; 80053; 82164; 83090; 83519; 83520; 84439; 84443; 84445; 85025; 85549; 85651; 86038; 86147